=== PATIENT | female | born 1970 | race Caucasian/White ===

== ENCOUNTER 2017-06-02 12:20 | Inpatient (IN) | payer MEDICARE ==
[~2017-06-02] VITALS: Ht 157.5 cm; Wt 102.5 kg
[2017-06-02] VITALS (17 sets, daily range): BP systolic 112–171; BP diastolic 53–87; PULSE 88–95; RESP 20–30; TEMP 99.4–101.2; O2SAT 54–100
[2017-06-02] MEDS ORDERED: LISI30TA4 PO (13:07)
[2017-06-02] MEDS ORDERED: GLIP1TAB52 PO (13:07)
[2017-06-02] MEDS ORDERED: ATEN50TA PO (13:07)
[2017-06-02] MEDS ORDERED: INSU1INJ5 SQ (13:07)
[2017-06-02] MEDS ORDERED: HUMALOG SQ (13:07)
[2017-06-02] MEDS ORDERED: AMLO10TA2 PO (13:07)
[2017-06-02] MEDS ORDERED: FURO20TA PO (13:07)
--- NOTE | 2017-06-02 13:16 | RADRPT ---
EXAM DATE/TIME: 06/02/2017 12:51 [facility] COMPARISON: No previous studies available for comparison. INDICATIONS : Chest pains with shortness of breath x 1 day. Low blood pressure, back pains. MEDICAL HISTORY : None. SURGICAL HISTORY : None. ENCOUNTER: Initial ACUITY: 1 day PAIN SCORE: 9/10 LOCATION: Bilateral chest FINDINGS: A single view of the chest demonstrates bilateral perihilar vascular congestion. Questionable infiltr ate right lung base. The cardiomediastinal contours are unremarkable. Osseous structures are intact . CONCLUSION: Questionable infiltrate in the right lung base. Diffuse perihilar vascular congestion. Keyshawn Holguin MD on June 02, 2017 at 13:14 Board Certified Radiologist. This report was verified electronically.
[2017-06-02 13:22] LABS: AUTOMATED NEUTROPHIL # 13.4 TH/MM3 (1.8-7.7); BASOPHIL % 0.1 % (0.0-2.0); HEMATOCRIT 26.5 % (35.0-46.0); HEMO FLAGS DIFF FINAL; LYMPH % 12.5 % (9.0-44.0); LYMPHOCYTE # 2.1 TH/MM3 (1.0-4.8); MEAN CELL VOLUME 84.2 FL (80.0-100.0); MEAN CORPUSCULAR HEMOGLOBIN 27.2 PG (27.0-34.0); MEAN CORPUSCULAR HGB CONC 32.3 % (32.0-36.0); MONO % 8.8 % (0.0-8.0); NEUT % 78.6 % (16.0-70.0); PLATELET COUNT 236 TH/MM3 (150-450); RED BLOOD COUNT 3.14 MIL/MM3 (4.00-5.30); RED CELL DISTRIBUTION WIDTH 15.1 % (11.6-17.2); WHITE BLOOD COUNT 17.1 TH/MM3 (4.0-11.0)
[2017-06-02 13:33] LABS: APTT (PATIENT) 29.8 SEC (24.3-30.1); PROTHROMBIN TIME - PATIENT 10.9 SEC (9.8-11.6)
[2017-06-02] MEDS ORDERED: CEFEPIME INJ 2,000 MG in SODIUM CHLORIDE 0.9% INJ 100 ML IV STA (13:33)
[2017-06-02] MEDS ORDERED: AZITHROMYCIN INJ 500 MG in SODIUM CHLOR 0.9% 250 ML INJ 250 ML IV STA (13:33)
--- NOTE | 2017-06-02 13:35 | PD ---
HPI Chief Complaint: Respiratory Distress Time Seen by Provider: 12:38 Travel History International Travel<30 days: No Contact w/Intl Traveler<30days: No Traveled to known affect area: No History of Present Illness HPI 47-year-old female presents with shortness of breath, body aches, chills and general ill feeling. She states she recently came from [place] on a [address] ride. She states she feels worse when she moves around. She denies any other specific complaints. She denies wearing oxygen at home for having prior issues with that before. Her symptoms started yesterday. Initial history is limited given hypoxia. PFSH Past Medical History Cardiovascular Problems: Yes Diabetes: Yes Patient Takes Glucophage: Yes Diminished Hearing: No Hypertension: Yes Influenza Vaccination: No ?: Not Menopausal: Yes Past Surgical History Appendectomy: Yes Other Surgery: Yes (FOOT SX- [facility]. GREAT TOE SX) Social History Alcohol Use: No Tobacco Use: No Substance Use: No Allergies-Medications (Allergen,Severity, Reaction): Coded Allergies: No Known Allergies (Unverified , 06/02/17) Reported Meds & Prescriptions Reported Meds & Active Scripts Active Reported Humalog Inj (Insulin Human Lispro) 1,000 Unit/10 Ml Vial 2-12 Units SQ TIDAC Max dose at bedtime:( )units; sugars < 70,(0)units; sugars 150-199,(2)units; sugars 200-249,(4)units; sugars 250-299,(7)units; sugars 300-349,(10)units; sugars more than 349,(12)units. Levemir Flextouch Pen Inj (Insulin Detemir) 300 unit/3 ML Pen 30 Units SQ BIDAC Glipizide XL (Glipizide) 10 Mg Allan 10 Mg PO DAILY Take with breakfast or first main meal of the day Atenolol 50 Mg Tab 50 Mg PO DAILY Lisinopril 30 Mg Tab 30 Mg PO DAILY Furosemide 20 Mg Tab 20 Mg PO DAILY Amlodipine (Amlodipine Besylate) 10 Mg Tab 10 Mg PO DAILY Review of Systems ROS Limitations: Poor Historian Except as stated in HPI: all other systems reviewed are Neg Physical Exam Narrative GENERAL: Well-nourished, well-developed patient. SKIN: Warm and dry. HEAD: Normocephalic and atraumatic. EYES: No injection or drainage. ENT: No nasal drainage noted. NECK: Supple, trachea midline. no meningeal signs CARDIOVASCULAR: Regular rate and rhythm RESPIRATORY: Decreased aeration bilaterally. No accessory muscle use. GASTROINTESTINAL: Abdomen soft, non-tender, nondistended. EXTREMITIES: Trace pedal edema bilaterally NEUROLOGICAL: Awake and alert. Motor and sensory grossly within normal limits. Normal speech. Data Data Last Documented VS Vital Signs Date Time Temp Pulse Resp B/P (MAP) Pulse Ox O2 Delivery O2 Flow Rate FiO2 06/02/17 14:28 98 Non-Rebreather 15.00 06/02/17 14:25 06/02/17 13:30 90 24 06/02/17 12:32 101.2 Orders Orders Electrocardiogram (06/02/17 12:38) B-Type Natriuretic Peptide (06/02/17 12:38) Ckmb (Isoenzyme) Profile (06/02/17 12:38) Complete Blood Count With Diff (06/02/17 12:38) Comprehensive Metabolic Panel (06/02/17 12:38) Magnesium (Mg) (06/02/17 12:38) Prothrombin Time / Inr (Pt) (06/02/17 12:38) Act Partial Throm Time (Ptt) (06/02/17 12:38) Troponin I (06/02/17 12:38) Lipase (06/02/17 12:38) Chest, Single Ap (06/02/17 12:38) Ecg Monitoring (06/02/17 12:38) Bilateral Bp Monitoring (06/02/17 12:38) Iv Access Insert/Monitor (06/02/17 12:38) Oximetry (06/02/17 12:38) Oxygen Administration (06/02/17 12:38) Lactic Acid Sepsis Protocol (06/02/17 12:38) Urinalysis - C+S If Indicated (06/02/17 12:38) Blood Culture (06/02/17 12:38) Blood Glucose (06/02/17 12:38) Cefepime Inj (Maxipime Inj) (06/02/17 13:33) Azithromycin Inj (Zithromax Inj) (06/02/17 13:33) Acetaminophen (Tylenol) (06/02/17 13:45) Influenzae A/B Antigen (06/02/17 13:36) Sodium Chlorid 0.9% 500 Ml Inj (Ns 500 M (06/02/17 13:45) Sodium Chlor 0.9% 1000 Ml Inj (Ns 1000 M (06/02/17 14:15) Albuterol-Ipratropium Neb (Duoneb Neb) (06/02/17 14:45) Admit Order (Ed Use Only) (06/02/17 14:40) Labs Laboratory Tests Test 06/02/17 13:00 White Blood Count 17.1 TH/MM3 Red Blood Count 3.14 MIL/MM3 Hemoglobin 8.6 GM/DL Hematocrit 26.5 % Mean Corpuscular Volume 84.2 FL Mean Corpuscular Hemoglobin 27.2 PG Mean Corpuscular Hemoglobin Concent 32.3 % Red Cell Distribution Width 15.1 % Platelet Count 236 TH/MM3 Mean Platelet Volume 8.3 FL Neutrophils (%) (Auto) 78.6 % Lymphocytes (%) (Auto) 12.5 % Monocytes (%) (Auto) 8.8 % Eosinophils (%) (Auto) 0.0 % Basophils (%) (Auto) 0.1 % Neutrophils # (Auto) 13.4 TH/MM3 Lymphocytes # (Auto) 2.1 TH/MM3 Monocytes # (Auto) 1.5 TH/MM3 Eosinophils # (Auto) 0.0 TH/MM3 Basophils # (Auto) 0.0 TH/MM3 CBC Comment DIFF FINAL Differential Comment Prothrombin Time 10.9 SEC Prothromb Time International Ratio 1.0 RATIO Activated Partial Thromboplast Time 29.8 SEC Blood Urea Nitrogen 32 MG/DL Creatinine 3.12 MG/DL Random Glucose 284 MG/DL Total Protein 6.8 GM/DL Albumin 2.1 GM/DL Calcium Level 8.1 MG/DL Magnesium Level 2.0 MG/DL Alkaline Phosphatase 120 U/L Aspartate Amino Transf (AST/SGOT) 11 U/L Alanine Aminotransferase (ALT/SGPT) 13 U/L Total Bilirubin 0.4 MG/DL Sodium Level 138 MEQ/L Potassium Level 4.4 MEQ/L Chloride Level 105 MEQ/L Carbon Dioxide Level 24.5 MEQ/L Anion Gap 9 MEQ/L Estimat Glomerular Filtration Rate 16 ML/MIN Lactic Acid Level 1.5 mmol/L Total Creatine Kinase 88 U/L Troponin I 0.03 NG/ML B-Type Natriuretic Peptide 949 PG/ML Lipase 79 U/L [facility] Medical Decision Making Medical Screen Exam Complete: Yes Emergency Medical Condition: Yes Medical Record Reviewed: Yes (past history confirmed with nurse) Interpretation(s) CBC & BMP Diagram 06/02/17 13:00 Total Protein 6.8, Albumin 2.1 L, Calcium Level 8.1 L, Magnesium Level 2.0, Alkaline Phosphatase 120 H, Aspartate Amino Transf (AST/SGOT) 11 L, Alanine Aminotransferase (ALT/SGPT) 13, Total Bilirubin 0.4 Last 24 hours Impressions Chest X-Ray 06/02/17 1238 Signed Impressions: Service Date/Time: Friday, June 02, 2017 12:51 - CONCLUSION: Questionable infiltrate in the right lung base. Diffuse perihilar vascular congestion. Keyshawn Holguin MD Differential Diagnosis pneumonia, sepsis, influenza, renal failure, heart failure Narrative Course Will check blood work, influenza, chest x-ray and reevaluate Patient with developing fever and leukocytosis with significant hypoxemia. Will dose with cefepime and azithromycin while awaiting other testing Testing shows acute renal failure with elevated BNP. Chest x-ray shows infiltrate. Patient's lactate is normal and she has no signs of hypotension. Patient given small IV fluid bolus but aggressive IV fluid hydration will be held given elevated BNP. She will need to be monitored closely in the ICU setting given her hypoxemia. Sepsis Criteria SIRS Criteria (2 or more): Temp > 100.9 or < 96.8, WBC > 50156, < 4000 or > 10 % bands Sepsis Criteria (SIRS+source): Infect source susp/known Criteria Outcome: Meets sepsis criteria Physician Communication Physician Communication dr cameron requests a baseline abg and admit to dr amy reyes updated about ABG and agrees to monitor on nonrebreather and no methylene blue, ABG was on 10 L Diagnosis Primary Impression: Pneumonia Qualified Codes: J18.9 - Pneumonia, unspecified organism Additional Impressions: Hypoxia Renal failure Qualified Codes: N19 - Unspecified kidney failure Sepsis Qualified Codes: A41.9 - Sepsis, unspecified organism Admitting Information Admitting Physician Requests: Admit Suzanna George MD Jun 02, 2017 13:35
[2017-06-02 13:41] LABS: ANION GAP 9 MEQ/L (5-15); AST (GOT) 11 U/L (15-37); BICARBONATE 24.5 MEQ/L (21.0-32.0); BLOOD UREA NITROGEN 32 MG/DL (7-18); CHLORIDE 105 MEQ/L (98-107); GLOMERULAR FILTRATION RATE 16 ML/MIN (>89); POTASSIUM 4.4 MEQ/L (3.5-5.1); SODIUM (NA) 138 MEQ/L (136-145)
[2017-06-02 13:42] LABS: ALT (GPT) 13 U/L (10-53)
[2017-06-02] MEDS ORDERED: SODIUM CHLORID 0.9% 500 ML INJ 500 ML IV ONE (13:45)
[2017-06-02] MEDS ORDERED: ACETAMINOPHEN 325 MG TAB PO ONE (13:45)
[2017-06-02 13:46] LABS: ALKALINE PHOSPHATASE 120 U/L (45-117); TOTAL BILIRUBIN ADULT 0.4 MG/DL (0.2-1.0)
[2017-06-02 13:47] LABS: CREATINE KINASE 88 U/L (26-192)
[2017-06-02] MEDS ORDERED: SODIUM CHLOR 0.9% 1000 ML INJ 1,000 ML IV ONE (14:15)
[2017-06-02] MEDS ORDERED: RESP: ALBUTEROL 2.5 MG/IPRATROPIUM 0.5 MG NEB (SCH) NEB ONE (14:45)
[2017-06-02 15:10] LABS: BLOOD GAS BASE EXCESS -0.5 mmol/L (-2-2); BLOOD GAS CARBOXYHEMOGLOBIN 0.9 % (0-4); BLOOD GAS HCO3 24 mmol/L (22-26); BLOOD GAS METHEMOGLOBIN 3.3 % (0-2); BLOOD GAS O2 HGB SATURATION 87 % (90-100); BLOOD GAS OXYGEN CONTENT 9.8 Vol % (12.0-20.0); BLOOD GAS PCO2 44 mmHg (38-42); BLOOD GAS PO2 67 mmHG (61-120); TEMP CORR TO 98.6
[2017-06-02 15:11] LABS: CRITICAL VALUE YES; LITER FLOW 10 L/M; OXYGEN DEVICE MASK
[2017-06-02 15:12] LABS: DRAW SITE RT RADIAL; NUMBER OF ARTERIAL PUNCTURES 1; STAT YES; ULNAR PULSE PRESENT
[2017-06-02] MEDS ORDERED: LACTULOSE SYRUP 20 GM/30 ML CUP PO PRN (15:15)
[2017-06-02] MEDS ORDERED: BISACODYL 10 MG SUPP RECTAL PRN (15:15)
[2017-06-02] MEDS ORDERED: SENNOSIDES 8.6 MG TAB PO PRN (15:15)
[2017-06-02] MEDS ORDERED: ONDANSETRON HCL 4 MG/2 ML VIAL IV PUSH PRN (15:15)
[2017-06-02] MEDS ORDERED: RESP: ALBUTEROL 2.5 MG/IPRATROPIUM 0.5 MG NEB (PRN) INH (15:15)
[2017-06-02] MEDS ORDERED: SODIUM CHLORIDE 0.9% FLUSH 10 ML FLUSH IV FLUSH PRN (15:15)
[2017-06-02] MEDS ORDERED: CHLORHEXIDINE GLUCONATE 2 % 1 PACK (2 CLOTHS) TOP PRN (15:15)
[2017-06-02] MEDS ORDERED: MAGNESIUM HYDROXIDE SUSP 30 ML CUP PO PRN (15:15)
[2017-06-02] MEDS ORDERED: MISCELLANEOUS NURSING INFORMATION XX SCH (15:15)
[2017-06-02] MEDS ORDERED: DEXTROSE 50% IN WATER 50 ML VIAL(D50) IV PUSH PRN (15:30)
[2017-06-02] MEDS ORDERED: GLUCAGON 1 MG/ML VIAL OTHER PRN (15:30)
[2017-06-02] MEDS: RESP: ALBUTEROL 2.5 MG/IPRATROPIUM 0.5 MG NEB (SCH) INH ×2 (17:14→20:50)
[2017-06-02] MEDS: SODIUM CHLOR 0.9% 1000 ML INJ 1,000 ML IV SCH (18:01)
--- NOTE | 2017-06-02 18:19 | HHI.HP ---
HPI Service Critical Care Medicine Primary Care Physician No Primary Care Physician Admission Diagnosis pneumonia, hypoxia Diagnosis: (1) UTI (urinary tract infection) Diagnosis: Principal (2) Renal failure (3) Hypoxia Diagnosis: Principal (4) Sepsis Diagnosis: Principal (5) Pneumonia Diagnosis: Principal Travel History International Travel<30 Days: No Contact w/Intl Traveler <30 Da: No Traveled to Known Affected Are: No History of Present Illness History of Present Illness HPI This is a 47-year-old female that presented with shortness of breath, body aches, chills and malaise. The patient recently traveled from [place] on a 5 [address] ride. Initial O2 saturation was on in the 50s on room air. The patient was placed on nonrebreather oxygen with improvement of O2 saturation. The patient was noted to be febrile upon presentation with a temperature of 100.1. Laboratory and imaging studies were performed in the ED the patient was noted to have a leukocytosis and imaging studies revealed an infiltrate of the right lung base. 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 Attempts made to locate patient's previous home medications as patient is a poor historian. Patient notably on glipizide a sulfonylurea, concern for acquired versus genetic predisposition for methemoglobinemia.The patient received in the ED 1 L IV fluid in conjunction with cefepime and azithromycin. Critical care medicine was consulted for management History PFSH Past Medical History Cardiovascular Problems: Yes Diabetes: Yes Patient Takes Glucophage: Yes Diminished Hearing: No Hypertension: Yes Influenza Vaccination: No ?: Not Menopausal: Yes Past Surgical History Appendectomy: Yes Other Surgery: Yes (FOOT SX- [facility]. GREAT TOE SX) Social History Alcohol Use: No Tobacco Use: No Substance Use: No Allergies-Medications Allergies-Medications (Allergen,Severity, Reaction): Coded Allergies: No Known Allergies (Unverified , 06/02/17) Reported Meds & Prescriptions Reported Meds & Active Scripts Active Reported Humalog Inj (Insulin Human Lispro) 1,000 Unit/10 Ml Vial 2-12 Units SQ TIDAC Max dose at bedtime:( )units; sugars < 70,(0)units; sugars 150-199,(2)units; sugars 200-249,(4)units; sugars 250-299,(7)units; sugars 300-349,(10)units; sugars more than 349,(12)units. Levemir Flextouch Pen Inj (Insulin Detemir) 300 unit/3 ML Pen 30 Units SQ BIDAC Glipizide XL (Glipizide) 10 Mg Allan 10 Mg PO DAILY Take with breakfast or first main meal of the day Atenolol 50 Mg Tab 50 Mg PO DAILY Lisinopril 30 Mg Tab 30 Mg PO DAILY Furosemide 20 Mg Tab 20 Mg PO DAILY Amlodipine (Amlodipine Besylate) 10 Mg Tab 10 Mg PO DAILY ROS Review of Systems ROS Limitations: Poor Historian Except as stated in HPI: all other systems reviewed are Neg Physical Exam Vital Signs Vital Signs Date Time Temp Pulse Resp B/P (MAP) Pulse Ox O2 Delivery O2 Flow Rate FiO2 06/02/17 17:13 74 21 06/02/17 17:13 91 Aerosol Mask 10.00 06/02/17 16:08 100 Non-Rebreather 15.00 06/02/17 15:59 99.5 06/02/17 15:00 88 24 117/81 (93) 97 Non-Rebreather 06/02/17 14:47 100 Partial Rebreather 15.00 06/02/17 14:28 98 Non-Rebreather 15.00 06/02/17 14:25 88 Room Air 6.00 06/02/17 13:30 90 24 146/78 (100) 92 Nasal Cannula 6.00 06/02/17 13:08 91 26 92 Nasal Cannula 6.00 06/02/17 13:03 91 26 171/87 (115) 91 Nasal Cannula 6.00 06/02/17 12:46 89 Nasal Cannula 4.00 06/02/17 12:46 90 Nasal Cannula 6.00 06/02/17 12:32 101.2 91 26 167/80 (109) 76 06/02/17 12:30 100 Non-Rebreather 15.00 06/02/17 12:21 100.0 94 20 148/77 (100) 54 Room Air Physical Exam GENERAL: Obese female, currently on nonrebreather mask SKIN: Warm and dry. HEAD: Atraumatic. Normocephalic. EYES: Pupils equal and round. No scleral icterus. No injection or drainage. ENT: No nasal bleeding or discharge. Mucous membranes pink and moist. NECK: Trachea midline. No JVD. CARDIOVASCULAR: Normal rate, regular rhythm. RESPIRATORY: No accessory muscle use. Clear to auscultation. Breath sounds equal bilaterally. GASTROINTESTINAL: Abdomen soft, non-tender, nondistended. No guarding. MUSCULOSKELETAL: Extremities without clubbing, cyanosis, bilateral pedal 1+ edema. Multiple well-healed scars bilateral feet secondary to multiple toe amputations NEUROLOGICAL: Awake and alert. RASS 0. No gross focal/sensory deficits. Follows commands in all 4 extremities. Laboratory Laboratory Tests Test 06/02/17 13:00 06/02/17 15:00 White Blood Count 17.1 Red Blood Count 3.14 Hemoglobin 8.6 Hematocrit 26.5 Mean Corpuscular Volume 84.2 Mean Corpuscular Hemoglobin 27.2 Mean Corpuscular Hemoglobin Concent 32.3 Red Cell Distribution Width 15.1 Platelet Count 236 Mean Platelet Volume 8.3 Neutrophils (%) (Auto) 78.6 Lymphocytes (%) (Auto) 12.5 Monocytes (%) (Auto) 8.8 Eosinophils (%) (Auto) 0.0 Basophils (%) (Auto) 0.1 Neutrophils # (Auto) 13.4 Lymphocytes # (Auto) 2.1 Monocytes # (Auto) 1.5 Eosinophils # (Auto) 0.0 Basophils # (Auto) 0.0 CBC Comment DIFF FINAL Differential Comment Prothrombin Time 10.9 Prothromb Time International Ratio 1.0 Activated Partial Thromboplast Time 29.8 Blood Urea Nitrogen 32 Creatinine 3.12 Random Glucose 284 Total Protein 6.8 Albumin 2.1 Calcium Level 8.1 Magnesium Level 2.0 Alkaline Phosphatase 120 Aspartate Amino Transf (AST/SGOT) 11 Alanine Aminotransferase (ALT/SGPT) 13 Total Bilirubin 0.4 Sodium Level 138 Potassium Level 4.4 Chloride Level 105 Carbon Dioxide Level 24.5 Anion Gap 9 Estimat Glomerular Filtration Rate 16 Lactic Acid Level 1.5 Total Creatine Kinase 88 Troponin I 0.03 B-Type Natriuretic Peptide 949 Lipase 79 Blood Gas Puncture Site RT RADIAL Blood Gas Patient Temperature 98.6 Blood Gas HCO3 24 Blood Gas Base Excess -0.5 Blood Gas Oxygen Saturation 87 Arterial Blood pH 7.36 Arterial Blood Partial Pressure CO2 44 Arterial Blood Partial Pressure O2 67 Arterial Blood Oxygen Content 9.8 Arterial Blood Carboxyhemoglobin 0.9 Arterial Blood Methemoglobin 3.3 Blood Gas Hemoglobin 8.0 Oxygen Delivery Device MASK Blood Gas Liter Flow 10 Date/Time Source Procedure Growth Status 06/02/17 13:35 Blood Peripheral Aerobic Blood Culture Pending Received 06/02/17 13:35 Blood Peripheral Anaerobic Blood Culture Pending Received 06/02/17 14:25 Nasal Aspirate Influenza Types A,B Antigen (EMMY) - Final NEGATIVE FOR FLU A AND B ANTIGEN.... Complete Result Diagram: 06/02/17 1300 06/02/17 1300 Imaging Last Impressions Chest X-Ray 06/02/17 1238 Signed Impressions: Service Date/Time: Friday, June 02, 2017 12:51 - CONCLUSION: Questionable infiltrate in the right lung base. Diffuse perihilar vascular congestion. Keyshawn Holguin MD Septic Shock Reassessment Heart: Regular rate and rhythm Lungs: Crackles Skin: Warm Peripheral Pulses: Bounding Right Radial Bounding Left Radial Capillary Refill: Brisk, <2 seconds Caprini VTE Risk Assessment Caprini VTE Risk Assessment: Mod/High Risk (score >= 2) Caprini Risk Assessment Model Point Value = 1 Point Value = 2 Point Value = 3 Point Value = 5 Age 41-60 Minor surgery BMI > 25 kg/m2 Swollen legs Varicose veins or History of unexplained or recurrent spontaneous Oral contraceptives or hormone replacement Sepsis (< 1 month) Serious lung disease, including pneumonia (< 1 month) Abnormal pulmonary function Acute myocardial infarction Congestive heart failure (< 1 month) History of inflammatory bowel disease Medical patient at bed rest Age 61-74 Arthroscopic surgery Major open surgery (> 45 min) Laparoscopic surgery (> 45 min) Malignancy Confined to bed (> 72 hours) Immobilizing plaster cast Central venous access Age >= 75 History of VTE Family history of VTE Factor V Leiden Prothrombin [id number] Lupus anticoagulant Anticardiolipin antibodies Elevated serum homocysteine Heparin-induced thrombocytopenia Other congenital or acquired thrombophilia Stroke (< 1 month) Elective arthroplasty Hip, pelvis, or leg fracture Acute spinal cord injury (< 1 month) Prophylaxis Regimen Total Risk Factor Score Risk Level Prophylaxis Regimen 0-1 Low Early ambulation 2 Moderate Order ONE of the following: *Sequential Compression Device (SCD) *Heparin 5000 units SQ BID 3-4 Higher Order ONE of the following medications: *Heparin 5000 units SQ TID *Enoxaparin/Lovenox 40 mg SQ daily (WT < 150 kg, CrCl > 30 mL/min) *Enoxaparin/Lovenox 30 mg SQ daily (WT < 150 kg, CrCl > 10-29 mL/min) *Enoxaparin/Lovenox 30 mg SQ BID (WT < 150 kg, CrCl > 30 mL/min) AND/OR *Sequential Compression Device (SCD) 5 or more Highest Order ONE of the following medications: *Heparin 5000 units SQ TID (Preferred with Epidurals) *Enoxaparin/Lovenox 40 mg SQ daily (WT < 150 kg, CrCl > 30 mL/min) *Enoxaparin/Lovenox 30 mg SQ daily (WT < 150 kg, CrCl > 10-29 mL/min) *Enoxaparin/Lovenox 30 mg SQ BID (WT < 150 kg, CrCl > 30 mL/min) AND *Sequential Compression Device (SCD) Assessment and Plan Assessment and Plan Assessment This is a 47-year-old morbidly obese female is a poor historian now presenting with pulmonary infectious process possible pneumonia versus fluid overload, in the setting would BAN, with hypoxic respiratory insufficiency. Patient is at risk for emergency intubation admit to ICU Assessment Community-acquired pneumonia vs. 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 Will not treat at this point with methylene blue.Will monitor. 06/02 Chest [id number] right lung base Follow-up repeat ABG Consider BIPAP tonight 14/ 60% Cardiovascular: Obtain ECHO Maintain MAP greater than 65 mmHg Initial troponin 0.03 Telemetry sinus rhythm Initial BMP 949, mostly 2/2 BAN but also possibly 2/2 cardiac dysfunction Patient home meds include- Lasix 20 mg/day,( lisinopril 30 mg/day amlodipine 10 mg/day which will be held in the setting of BAN), and atenolol. Renal: No [place] Pt reports she does have problems with her kidneys per her PCP -- Strict I/Os FEN/GI: Gentle hydration normal saline 42 cc/hour Maintain NPO status for now, patient possible intubation Zofran for nausea Bowel regimen Heme/ID: Follow-up blood cultures Monitor CBC Obtain sputum culture Obtain Legionella and pneumococcal urine antigen follow-up results Endocrine: Glucose monitoring per ICU protocol, low-dose insulin regimen -- SSI Prophylaxis: GI Prophylaxis Protonix DVT Prophylaxis -- SCDs Heparin 5000 SQ BID Lines: Peripheral IVs providing adequate access at this time. Central line if indicated Dispo: This patient remains critically ill with one or more organ systems which are or may become a threat to life. I have spent in excess of 40 minutes discontinuously in the care and management of this patient. This time is exclusive of procedures, and includes, but is not limited to, evaluation of the patient, review of the medical record, discussions with family, consultants, nursing staff, or respiratory therapy, and documentation in the medical record. Code Status Full Discussed Condition With ED physician Dr. George , patient and BOAT TENDER at bedside Problem Qualifiers (1) Renal failure: Qualified Codes: N19 - Unspecified kidney failure (2) Sepsis: Qualified Codes: A41.9 - Sepsis, unspecified organism (3) Pneumonia: Qualified Codes: J18.9 - Pneumonia, unspecified organism Venecia De La Rosa MD Jun 02, 2017 18:19
[2017-06-02 18:43] LABS: BLOOD GAS BASE EXCESS -1.1 mmol/L (-2-2); BLOOD GAS CARBOXYHEMOGLOBIN 0.1 % (0-4); BLOOD GAS HCO3 24 mmol/L (22-26); BLOOD GAS METHEMOGLOBIN 3.7 % (0-2); BLOOD GAS O2 HGB SATURATION 91 % (90-100); BLOOD GAS OXYGEN CONTENT 10.3 Vol % (12.0-20.0); BLOOD GAS PCO2 43 mmHg (38-42); BLOOD GAS PO2 90 mmHg (61-120); BLOOD GAS TOTAL HGB 7.9 G/DL (12.0-16.0); TEMP CORR TO 98.6
[2017-06-02 18:45] LABS: CRITICAL VALUE YES; FIO2 100 %; LITER FLOW 15 L/M; OXYGEN DEVICE NRBR
[2017-06-02 18:46] LABS: DRAW SITE RT RADIAL; NUMBER OF ARTERIAL PUNCTURES 1; STAT NO; ULNAR PULSE PRESENT
[2017-06-02] MEDS: cefTRIAXone INJ 2,000 MG in SODIUM CHLORIDE 0.9% INJ 100 ML IV SCH (19:30)
--- NOTE | 2017-06-02 19:33 | RADRPT ---
EXAM DATE/TIME: 06/02/2017 18:37 [facility] COMPARISON: No previous studies available for comparison. INDICATIONS : Shortness of breath. MEDICAL HISTORY : Hypertension. Diabetes. SURGICAL HISTORY : Appendectomy. Bilateral foot surgery. Great toe surgery. ENCOUNTER: Initial ACUITY: 1 day PAIN SCORE: 1/10 LOCATION: Bilateral legs. TECHNIQUE: Venous ultrasound of the left and right leg was performed from the inguinal ligament to the proximal calf. Real-time, color Doppler and spectral tracing, compression and augmentation techniques were us ed. FINDINGS: RIGHT LEG: There is normal compressibility of the deep venous system from the inguinal region to the proximal ca lf. No echogenic clot is seen in the lumen of the common femoral, femoral, popliteal, and posterior tibial veins. There is a normal response of the venous system to proximal and distal augmentation an d respiration. LEFT LEG: There is normal compressibility of the deep venous system from the inguinal region to the proximal ca lf. No echogenic clot is seen in the lumen of the common femoral, femoral, popliteal, and posterior tibial veins. There is a normal response of the venous system to proximal and distal augmentation an d respiration. CONCLUSION: The study is negative for deep venous thrombosis bilateral lower extremity. Bruce Calix MD on June 02, 2017 at 19:31 Board Certified Radiologist. This report was verified electronically.
[2017-06-02] MEDS ORDERED: ACETAMINOPHEN 1000 MG/100 ML 100 ML IV PRN (20:15)
[2017-06-02] MEDS: SODIUM CHLORIDE 0.9% FLUSH 10 ML FLUSH IV FLUSH SCH (20:46)
[2017-06-02] MEDS: DOCUSATE SODIUM 50 MG/SENNA 8.6 MG TAB PO SCH (20:46)
[2017-06-02] MEDS: FAMOTIDINE 20 MG/2 ML VIAL IV PUSH SCH (20:46)
[2017-06-02] MEDS: INSULIN ASPART SUPPLEMENTAL SCALE SQ SCH (20:47)
[2017-06-03] VITALS (29 sets, daily range): BP systolic 98–176; BP diastolic 47–129; PULSE 79–94; RESP 16–38; TEMP 98.4–101.5; O2SAT 96–100
[2017-06-03 00:03] LABS: BLOOD GAS BASE EXCESS -0.1 mmol/L (-2-2); BLOOD GAS CARBOXYHEMOGLOBIN 0.2 % (0-4); BLOOD GAS HCO3 24 mmol/L (22-26); BLOOD GAS METHEMOGLOBIN 3.6 % (0-2); BLOOD GAS O2 HGB SATURATION 89 % (90-100); BLOOD GAS OXYGEN CONTENT 9.1 Vol % (12.0-20.0); BLOOD GAS PCO2 41 mmHg (38-42); BLOOD GAS PO2 79 mmHg (61-120); BLOOD GAS TOTAL HGB 7.1 G/DL (12.0-16.0); TEMP CORR TO 98.6
[2017-06-03 00:05] LABS: CRITICAL VALUE YES; DRAW SITE RT RADIAL; FIO2 60 %; NUMBER OF ARTERIAL PUNCTURES 1; STAT NO; ULNAR PULSE PRESENT
[2017-06-03 02:54] LABS: BACTERIA, URINE RARE /hpf; BLOOD, URINE SMALL (NEG); COMMENT (UR) CATH-CULTURE IND; CULTURE IF INDICATED CATH CULTURE IND; GLUCOSE,URINE 150 mg/dL (NEG); KETONE, URINE NEG (NEG); NITRITE,URINE NEG (NEG); SQUAMOUS EPITHELIAL CELL URINE 4 /hpf (0-5); URINE COLOR YELLOW (YELLW/STRAW)
[2017-06-03] MEDS: RESP: ALBUTEROL 2.5 MG/IPRATROPIUM 0.5 MG NEB (SCH) INH ×4 (03:58→20:45)
[2017-06-03] MEDS: HEPARIN SODIUM - SQ 10,000 UNITS/ML VIAL SQ SCH ×2 (04:00→16:45)
[2017-06-03] MEDS: CHLORHEXIDINE GLUCONATE 2 % 1 PACK (2 CLOTHS) TOP SCH (04:00)
--- NOTE | 2017-06-03 05:40 | RADRPT ---
EXAM DATE/TIME: 06/03/2017 04:03 [facility] COMPARISON: CHEST SINGLE AP, June 02, 2017, 12:51. INDICATIONS : Short of breath. MEDICAL HISTORY : None. SURGICAL HISTORY : None. ENCOUNTER: Initial ACUITY: 1 day PAIN SCORE: 0/10 LOCATION: Bilateral chest FINDINGS: Bilateral airspace opacities persists, mid and lower lung predominant and the side slightly worse. At least small, bilateral pleural effusions are likely. A density in pneumothorax. Heart size stable, upper limits of normal. CONCLUSION: Worsening bilateral airspace opacities and pleural effusions. Arturo Lay MD on June 03, 2017 at 5:38 Board Certified Radiologist. This report was verified electronically.
[2017-06-03 06:22] LABS: AUTOMATED NEUTROPHIL # 8.2 TH/MM3 (1.8-7.7); BASOPHIL % 0.4 % (0.0-2.0); EOSINOPHIL # 0.1 TH/MM3 (0-0.4); EOSINOPHIL % 0.5 % (0.0-4.0); LYMPH % 18.2 % (9.0-44.0); LYMPHOCYTE # 2.1 TH/MM3 (1.0-4.8); MEAN CORPUSCULAR HEMOGLOBIN 26.9 PG (27.0-34.0); MEAN CORPUSCULAR HGB CONC 32.4 % (32.0-36.0); MONO % 11.1 % (0.0-8.0); NEUT % 69.8 % (16.0-70.0); PLATELET COUNT 197 TH/MM3 (150-450); RED BLOOD COUNT 2.46 MIL/MM3 (4.00-5.30); RED CELL DISTRIBUTION WIDTH 14.8 % (11.6-17.2); WHITE BLOOD COUNT 11.7 TH/MM3 (4.0-11.0)
[2017-06-03 06:31] LABS: HEMO FLAGS DIFF FINAL
[2017-06-03 06:34] LABS: HEMATOCRIT 20.5 % (35.0-46.0)
[2017-06-03 06:50] LABS: ALT (GPT) 8 U/L (10-53); ANION GAP 8 MEQ/L (5-15); AST (GOT) 10 U/L (15-37); BICARBONATE 24.4 MEQ/L (21.0-32.0); BLOOD UREA NITROGEN 33 MG/DL (7-18); CHLORIDE 111 MEQ/L (98-107); GLOMERULAR FILTRATION RATE 15 ML/MIN (>89); POTASSIUM 3.8 MEQ/L (3.5-5.1); SODIUM (NA) 143 MEQ/L (136-145)
[2017-06-03 06:52] LABS: ALKALINE PHOSPHATASE 94 U/L (45-117); HDL CHOLESTEROL 64.8 MG/DL (40.0-60.0); LDL CHOLESTEROL 92 MG/DL (0-99); MAGNESIUM 1.7 MG/DL (1.5-2.5); TOTAL BILIRUBIN ADULT 0.2 MG/DL (0.2-1.0)
[2017-06-03] MEDS: INSULIN ASPART SUPPLEMENTAL SCALE SQ SCH ×4 (08:00→20:56)
--- NOTE | 2017-06-03 08:25 | HHI.CCPN ---
Subjective Remarks/Hospital Course This is a 47-year-old female that presented with shortness of breath, body aches, chills and malaise. The patient recently traveled from [place] on a 5 [address] ride. Initial O2 saturation was on in the 50s on room air. The patient was placed on nonrebreather oxygen with improvement of O2 saturation. The patient was noted to be febrile upon presentation with a temperature of 100.1. Laboratory and imaging studies were performed in the ED the patient was noted to have a leukocytosis and imaging studies revealed an infiltrate of the right lung base. 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 Attempts made to locate patient's previous home medications as patient is a poor historian. The patient received in the ED 1 L IV fluid in conjunction with cefepime and azithromycin. Critical care medicine was consulted for management. Subjective: 06/03: Tmax 101.5. Overnight the patient was maintained on BiPAP 14/5 and 60%, maintaining O2 saturation of 100%. ABG this a.m. showed increase in methemoglobinemia to 3.6% low PaO2. Plan for administration of methylene blue and ascorbic acid this a.m.. Patient's hemoglobin was notably decreased from 8.2 to 6.6, possibly secondary to hemolysis or bleeding, though no active signs were noted. The patient does report having a some type of cardiac history and takes nitroglycerin sublingually with her last dose yesterday morning. Extensive inquiry regarding the patient's genetic vs. acquired information regarding causes of methemoglobinemia still unknown. She states she has never been told medical history regarding G6PD or B5 reductase deficiency, but takes nitroglycerin when necessary for angina. The patient also takes sulfonamide medications-Glipizide ER. Patient was noted to have an elevation in creatinine, urine studies, renal ultrasound and CT of abdomen and pelvis are pending. The patient's BNP notably decreased, and no elevation in troponin levels. Objective Vital Signs Date Time Temp Pulse Resp B/P (MAP) Pulse Ox O2 Delivery O2 Flow Rate FiO2 06/03/17 06:00 79 06/03/17 04:20 100 60 06/03/17 04:00 98.8 16 135/62 (86) 06/02/17 20:50 Non-Rebreather 15.00 Result Diagram: 06/03/17 0555 06/03/17 0555 Other Results Microbiology Date/Time Source Procedure Growth Status 06/02/17 14:25 Nasal Aspirate Influenza Types A,B Antigen (EMMY) - Final NEGATIVE FOR FLU A AND B ANTIGEN.... Complete Laboratory Tests Test 06/02/17 15:00 06/02/17 18:35 Blood Gas Puncture Site RT RADIAL RT RADIAL Blood Gas Patient Temperature 98.6 98.6 Blood Gas HCO3 24 mmol/L (22-26) 24 mmol/L (22-26) Blood Gas Base Excess -0.5 mmol/L (-2-2) -1.1 mmol/L (-2-2) Blood Gas Oxygen Saturation 87 % (90-100) 91 % (90-100) Arterial Blood pH 7.36 (7.380-7.420) 7.36 (7.380-7.420) Arterial Blood Partial Pressure CO2 44 mmHg (38-42) 43 mmHg (38-42) Arterial Blood Partial Pressure O2 67 mmHG (61-120) 90 mmHg (61-120) Arterial Blood Oxygen Content 9.8 Vol % (12.0-20.0) 10.3 Vol % (12.0-20.0) Arterial Blood Carboxyhemoglobin 0.9 % (0-4) 0.1 % (0-4) Arterial Blood Methemoglobin 3.3 % (0-2) 3.7 % (0-2) Blood Gas Hemoglobin 8.0 G/DL (12.0-16.0) 7.9 G/DL (12.0-16.0) Oxygen Delivery Device MASK NRBR Blood Gas Liter Flow 10 L/M 15 L/M Blood Gas Inspired Oxygen 100 % Imaging Last Impressions Chest X-Ray 06/03/17 0600 Signed Impressions: Service Date/Time: Saturday, June 03, 2017 04:03 - CONCLUSION: Worsening bilateral airspace opacities and pleural effusions. Arturo Lay MD Lower Extremity Ultrasound 06/02/17 0000 Signed Impressions: Service Date/Time: Friday, June 02, 2017 18:37 - CONCLUSION: The study is negative for deep venous thrombosis bilateral lower extremity. Bruce Calix MD Last Impressions Chest X-Ray 06/02/17 1238 Signed Impressions: Service Date/Time: Zainab, June 02, 2017 12:51 - CONCLUSION: Questionable infiltrate in the right lung base. Diffuse perihilar vascular congestion. Keyshawn Holguin MD Objective Remarks BP 129/60 Pulse 98 O2 Sat 100% GENERAL: Obese female, currently on BiPAP 14/5 FIO2 .60 SKIN: Warm and dry. HEAD: Atraumatic. Normocephalic. EYES: Pupils equal and round. No scleral icterus. No injection or drainage. ENT: No nasal bleeding or discharge. Mucous membranes pink and moist. NECK: Trachea midline. No JVD. CARDIOVASCULAR: Normal rate, regular rhythm. RESPIRATORY: No accessory muscle use. Scattered rhonchi throughout lung castillo. Breath sounds equal bilaterally. GASTROINTESTINAL: Abdomen soft, non-tender, protuberant nondistended. No guarding. MUSCULOSKELETAL: Extremities without clubbing, cyanosis, bilateral pedal 1+ edema. Multiple well-healed scars bilateral feet secondary to multiple toe amputations NEUROLOGICAL: Awake and alert. RASS 0. No gross focal/sensory deficits. Follows commands in all 4 extremities. Urinary Catheter: Yes Assessment to: Continue Mandujano insert reason: Measure Accurate Output A/P Assessment and Plan Assessment This is a 47-year-old morbidly obese female is a poor historian now presenting with pulmonary infectious process possible pneumonia versus fluid overload, in the setting would BAN, with hypoxic respiratory insufficiency. Patient is at risk for emergency intubation admit to ICU Assessment Community-acquired pneumonia vs. fluid overload Leukocytosis BAN Acute systolic heart failure Acute hypoxic respiratory insufficiency History of hypertension Diabetes mellitus Obesity Hyperlipidemia Mild protein calorie malnutrition Plan Neurologic: Neurochecks per ICU protocol Avoid sedative type medications Tylenol 650 mg every 6 hours when necessary for fever and/or pain Respiratory: Maintain O2 sat greater than 92% Serial chest x-rays and ABGs as clinically indicated Bronchodilators every 6 hours scheduled for wheezing Methemoglobinemia level noted 3.3-> 3.6 increased. Denial past medical history genetic predisposition of G6PD, E5 reductase deficiency . Extrinisic use patient reportedly use of nitroglycerin 06/02, takes glipizide ER ( Sulfonylurea ) Will administer Methylene blue 100 mg IV, ascorbic acid 100 mg IV- F/U ABG 06/02 Chest [id number] right lung base BIPAP tonight 14/5 60% Cardiovascular: Obtain ECHO- F/U results Maintain MAP greater than 65 mmHg Initial troponin 0.03->0.04->0.04 Telemetry sinus rhythm Initial BMP 949 now downtrended 343, Patient home meds include- Lasix 20 mg/day,( lisinopril 30 mg/day amlodipine 10 mg/day which will be held in the setting of BAN), and atenolol. Obtain CT chest-pending Renal: Insert Mandujano-required accurate I&O's in the setting of a BAN -- Strict I/Os FEN/GI: Gentle hydration normal saline 42 cc/hour Creatinine continued elevation Obtain renal ultrasound Follow-up nephrology labs -urine sodium, creatinine, eosinophils, protein creatinine ratio May have ice chips, patient possible intubation Pt reports she does have problems with her kidneys per her PCP Obtain CT abdomen and pelvis-pending Nephrology consult Aranzafran for nausea Bowel regimen Heme/ID: Follow-up blood cultures Monitor CBC Obtain peripheral smear- R/O Merrill bodies Obtain sputum culture Obtain Legionella and pneumococcal urine antigen follow-up results Endocrine: Glucose monitoring per ICU protocol, low-dose insulin regimen -- SSI Prophylaxis: GI Prophylaxis Protonix DVT Prophylaxis -- SCDs Heparin 5000 SQ BID Lines: Peripheral IVs providing adequate access at this time. Central line if indicated Dispo: This patient remains critically ill with one or more organ systems which are or may become a threat to life. I have spent in excess of 45 minutes discontinuously in the care and management of this patient. This time is exclusive of procedures, and includes, but is not limited to, evaluation of the patient, review of the medical record, discussions with family, consultants, nursing staff, or respiratory therapy, and documentation in the medical record. Physician Venecia Weller MD Jun 03, 2017 08:25
[2017-06-03] MEDS: DOCUSATE SODIUM 50 MG/SENNA 8.6 MG TAB PO SCH ×2 (09:00→20:46)
[2017-06-03] MEDS ORDERED: ASCORBIC ACID 500 MG TAB PO ONE (09:00)
[2017-06-03] MEDS: FAMOTIDINE 20 MG/2 ML VIAL IV PUSH SCH ×2 (09:00→20:55)
[2017-06-03] MEDS: SODIUM CHLORIDE 0.9% FLUSH 10 ML FLUSH IV FLUSH SCH ×2 (09:00→20:56)
--- NOTE | 2017-06-03 09:26 | RADRPT ---
EXAM DATE/TIME: 06/03/2017 08:13 [facility] COMPARISON: No previous studies available for comparison. INDICATIONS : Increased BUN/Creatinine. MEDICAL HISTORY : Hypertension. Diabetes. SURGICAL HISTORY : Appendectomy. Bilateral foot surgery. ENCOUNTER: Initial ACUITY: 1 day PAIN SCORE: 0/10 LOCATION: Bilateral flank MEASUREMENTS: RIGHT KIDNEY: 11.3 x 4.1 x 4.4 cm LEFT KIDNEY: 9.6 x 5.1 x 5.0 cm FINDINGS: RIGHT KIDNEY: Renal cortex is normal in thickness and echotexture. No hydronephrosis, stone, or mass. LEFT KIDNEY: Renal cortex is normal in thickness and echotexture. No hydronephrosis, stone, or mass. BLADDER: Mandujano catheter.. CONCLUSION: Normal examination. Keyshawn Holguin MD on June 03, 2017 at 9:23 Board Certified Radiologist. This report was verified electronically.
--- NOTE | 2017-06-03 09:52 | RADRPT ---
EXAM DATE/TIME: 06/03/2017 09:25 [facility] COMPARISON: No previous studies available for comparison. INDICATIONS : Shortness of breath. RADIATION DOSE: 8.70 CTDIvol (mGy) ; Combined studies - Thorax/Abdomen/Pelvis MEDICAL HISTORY : Cardiovascular disease. Diabetes mellitus type 2. SURGICAL HISTORY : Appendectomy. ENCOUNTER: Initial ACUITY: 1 day PAIN SCALE: 0/10 LOCATION: chest TECHNIQUE: Volumetric scanning of the chest was performed. Using automated exposure control and adjustment of t he mA and/or kV according to patient size, radiation dose was kept as low as reasonably achievable to obtain optimal diagnostic quality images. DICOM format image data is available electronically for r eview and comparison. Follow-up recommendations for detected pulmonary nodules are based at a minimum on nodule size and pa tient risk factors according to Fleischner Society Guidelines. FINDINGS: LUNGS: There are significant areas of consolidation in the lung bases bilaterally. There is also airspace di sease in the medial right upper lobe and the left upper lobe posteriorly PLEURAE: Moderate-sized bilateral pleural effusions right greater the left. MEDIASTINUM: The heart and great vessels demonstrate no acute abnormality. The soft tissue fullness in the anteri or superior mediastinum could be reactive lymphadenopathy or a small pericardial effusion.. AXILLAE: Within normal limits. No lymphadenopathy. MUSCULOSKELETAL: Diffuse body wall edema.. MISCELLANEOUS: The visualized upper abdominal organs demonstrate no acute abnormality. CONCLUSION: Bilateral areas of consolidation and pleural effusions. Fullness of the anterior-superior mediastinal adenopathy versus fluid. Keyshawn Holguin MD on June 03, 2017 at 9:47 Board Certified Radiologist. This report was verified electronically.
--- NOTE | 2017-06-03 09:57 | RADRPT ---
EXAM DATE/TIME: 06/03/2017 09:22 [facility] COMPARISON: No previous studies available for comparison. INDICATIONS : Renal failure. ORAL CONTRAST: No oral contrast ingested. RADIATION DOSE: 8.70 CTDIvol (mGy) ; Combined studies - Thorax/Abdomen/Pelvis MEDICAL HISTORY : Cardiovascular disease. Diabetes mellitus type 2. SURGICAL HISTORY : Appendectomy. ENCOUNTER: Initial ACUITY: 1 day PAIN SCALE: 0/10 LOCATION: abdomen TECHNIQUE: Volumetric scanning of the abdomen and pelvis was performed. Using automated exposure control and ad justment of the mA and/or kV according to patient size, radiation dose was kept as low as reasonably achievable to obtain optimal diagnostic quality images. DICOM format image data is available electro nically for review and comparison. FINDINGS: LOWER LUNGS: Bilateral pleural effusions and significant consolidation at both lung bases. LIVER: Homogeneous density without lesion. There is no dilation of the biliary tree. No calcified gallston es. SPLEEN: Normal size without lesion. PANCREAS: Within normal limits. KIDNEYS: Normal in size and shape. There is no mass, stone, or hydronephrosis. ADRENAL GLANDS: Within normal limits. VASCULAR: There is no aortic aneurysm. BOWEL/MESENTERY: The stomach, small bowel, and colon demonstrate no acute abnormality. There is no free intraperitone al air or fluid. ABDOMINAL WALL: Within normal limits. Curvilinear calcification in the anterior superior abdomen possibly related to previous hernia repair. RETROPERITONEUM: There is lymphadenopathy throughout the pelvis, all small less than 1 cm in shortest axial dimension. . BLADDER: No wall thickening or mass. Mandujano catheter in place REPRODUCTIVE: Within normal limits. INGUINAL: There is no hernia. Small reactive lymph nodes. MUSCULOSKELETAL: Within normal limits for patient age. CONCLUSION: Diffuse edema throughout the body wall. Previous hernia repair which has become posterior displaced f rom the abdominal wall anteriorly. Solid organs are unremarkable. No bowel wall thickening is identif ied. Keyshawn Holguin MD on June 03, 2017 at 9:51 Board Certified Radiologist. This report was verified electronically.
--- NOTE | 2017-06-03 10:04 | EKG ---
Date Performed: 06/02/2017 Time Performed: 13:17:51 PTAGE: 47 years EKG: Sinus rhythm NORMAL ECG NO PREVIOUS TRACING DOCTOR: Keyshawn Foster Interpretating Date/Time 06/03/2017 10:04:04
[2017-06-03] MEDS: ACETAMINOPHEN 325 MG TAB PO PRN ×2 (12:40→18:18)
[2017-06-03] MEDS: AZITHROMYCIN INJ 500 MG in SODIUM CHLOR 0.9% 250 ML INJ 250 ML IV SCH (14:12)
[2017-06-03] MEDS: SODIUM CHLOR 0.9% 1000 ML INJ 1,000 ML IV SCH (16:46)
[2017-06-03] MEDS: cefTRIAXone INJ 2,000 MG in SODIUM CHLORIDE 0.9% INJ 100 ML IV SCH (18:00)
[2017-06-03] MEDS ORDERED: METHYLENE BLUE 100 MG/10 ML VIAL IV ONE ×3 (18:45→19:15)
[2017-06-03 21:30] LABS: HEMATOCRIT 31.5 % (35.0-46.0); REVIEW FLAG FINAL
[2017-06-04] VITALS (14 sets, daily range): BP systolic 146–185; BP diastolic 66–86; PULSE 88–104; RESP 18–30; TEMP 98.7–100.3; O2SAT 96–100
[2017-06-04] MEDS: CHLORHEXIDINE GLUCONATE 2 % 1 PACK (2 CLOTHS) TOP SCH (00:55)
[2017-06-04] MEDS: SODIUM CHLOR 0.9% 1000 ML INJ 1,000 ML IV SCH (03:00)
[2017-06-04] MEDS: HEPARIN SODIUM - SQ 10,000 UNITS/ML VIAL SQ SCH ×2 (03:00→16:58)
[2017-06-04] MEDS: ACETAMINOPHEN 325 MG TAB PO PRN ×2 (03:08→20:24)
[2017-06-04] MEDS: RESP: ALBUTEROL 2.5 MG/IPRATROPIUM 0.5 MG NEB (SCH) INH ×4 (04:24→21:02)
--- NOTE | 2017-06-04 05:25 | RADRPT ---
EXAM DATE/TIME: 06/04/2017 04:14 [facility] COMPARISON: CT THORAX W/O CONTRAST, June 03, 2017, 9:25. INDICATIONS : Evaluate for pneumonia MEDICAL HISTORY : Cardiovascular disease. Diabetes mellitus type 2. SURGICAL HISTORY : Appendectomy. ENCOUNTER: Subsequent ACUITY: 2 days PAIN SCORE: Non-responsive. LOCATION: Bilateral chest FINDINGS: Small to moderate bilateral pleural effusions with mid and lower lung consolidation again seen, does not appear appreciably changed. No pneumothorax. Heart size stable, within normal limits. CONCLUSION: Persistent airspace opacities and small to moderate pleural effusions on both sides. Arturo Lay MD on June 04, 2017 at 5:23 Board Certified Radiologist. This report was verified electronically.
[2017-06-04 07:21] LABS: AUTOMATED NEUTROPHIL # 7.5 TH/MM3 (1.8-7.7); BASOPHIL % 0.3 % (0.0-2.0); EOSINOPHIL # 0.1 TH/MM3 (0-0.4); EOSINOPHIL % 0.8 % (0.0-4.0); HEMATOCRIT 29.3 % (35.0-46.0); HEMO FLAGS DIFF FINAL; LYMPH % 17.3 % (9.0-44.0); LYMPHOCYTE # 1.8 TH/MM3 (1.0-4.8); MEAN CELL VOLUME 85.5 FL (80.0-100.0); MEAN CORPUSCULAR HGB CONC 32.8 % (32.0-36.0); MONO % 10.7 % (0.0-8.0); NEUT % 70.9 % (16.0-70.0); PLATELET COUNT 219 TH/MM3 (150-450); RED BLOOD COUNT 3.43 MIL/MM3 (4.00-5.30); RED CELL DISTRIBUTION WIDTH 15.2 % (11.6-17.2); WHITE BLOOD COUNT 10.6 TH/MM3 (4.0-11.0)
[2017-06-04 07:48] LABS: POTASSIUM 3.8 MEQ/L (3.5-5.1)
[2017-06-04] MEDS: INSULIN ASPART SUPPLEMENTAL SCALE SQ SCH ×4 (08:00→20:25)
[2017-06-04] MEDS: FAMOTIDINE 20 MG/2 ML VIAL IV PUSH SCH ×2 (08:09→20:27)
[2017-06-04] MEDS: DOCUSATE SODIUM 50 MG/SENNA 8.6 MG TAB PO SCH ×2 (08:10→20:23)
[2017-06-04] MEDS: SODIUM CHLORIDE 0.9% FLUSH 10 ML FLUSH IV FLUSH SCH ×2 (08:10→20:23)
--- NOTE | 2017-06-04 08:29 | PD.CONS ---
HPI Service Nephrology Consult Requested By Dr. De La Rosa Reason for Consult BAN vs CKD. Primary Care Physician No Primary Care Physician History of Present Illness This is 47 year old lady who traveled from [place] in a bus, seen in the ER, diagnosed with right sided pneumonia. Febrile on arrival. Placed on Ceftriaxone and Zithromax. Has received more than 3 liters of IVF so far. Creatinine was 3.12 on arrival, basically the same today at 3.05. Of significance, UA revealed heavy proteinuria, urine protein/creatinine ratio confirms it : 4.64 gram/gram of creatinine. Review of Systems Constitutional: COMPLAINS OF: Fatigue, Fever Respiratory: COMPLAINS OF: Cough, Wheezing, Shortness of breath Cardiovascular: DENIES: Chest pain Gastrointestinal: DENIES: Nausea, Vomiting Past Family Social History Allergies: Coded Allergies: No Known Allergies (Unverified , 06/02/17) Past Medical History Type 2 DM Hypertension Obesity Reported Medications Humalog Inj (Insulin Human Lispro) 1,000 Unit/10 Ml Vial 2-12 Units SQ TIDAC Max dose at bedtime:( )units; sugars < 70,(0)units; sugars 150-199,(2)units; sugars 200-249,(4)units; sugars 250-299,(7)units; sugars 300-349,(10)units; sugars more than 349,(12)units. Levemir Flextouch Pen Inj (Insulin Detemir) 300 unit/3 ML Pen 30 Units SQ BIDAC Glipizide XL (Glipizide) 10 Mg Allan 10 Mg PO DAILY Take with breakfast or first main meal of the day Atenolol 50 Mg Tab 50 Mg PO DAILY Lisinopril 30 Mg Tab 30 Mg PO DAILY Furosemide 20 Mg Tab 20 Mg PO DAILY Amlodipine (Amlodipine Besylate) 10 Mg Tab 10 Mg PO DAILY Family History non contributory, reviewed. Social History From [place], lives in [place]. Denies smoking or ETOH Physical Exam Vital Signs Vital Signs Date Time Temp Pulse Resp B/P (MAP) Pulse Ox O2 Delivery O2 Flow Rate FiO2 06/04/17 08:06 99 Nasal Cannula 3.00 06/04/17 06:00 97 06/04/17 04:00 88 06/04/17 04:00 100.2 88 25 154/69 (97) 100 06/04/17 02:00 91 06/04/17 00:00 90 06/04/17 00:00 98.8 90 21 149/66 (93) 99 06/03/17 22:00 94 06/03/17 20:45 98 3.00 06/03/17 20:20 99.1 87 25 155/83 100 06/03/17 20:00 90 06/03/17 20:00 99.1 90 28 155/83 (107) 100 06/03/17 18:00 93 22 137/71 (93) 96 06/03/17 17:31 93 28 106/55 (72) 97 06/03/17 17:01 99.1 93 24 126/60 97 06/03/17 17:01 92 34 126/60 (82) 98 06/03/17 16:41 99.0 91 24 146/57 98 06/03/17 16:01 99.1 87 23 140/58 (85) 99 06/03/17 15:00 90 25 117/53 (74) 96 06/03/17 14:02 91 38 176/129 (145) 99 06/03/17 13:45 91 25 140/65 (90) 99 06/03/17 13:31 90 24 149/68 (95) 99 06/03/17 13:30 98.9 91 24 149/68 100 06/03/17 13:15 99.1 90 24 176/88 100 06/03/17 13:01 91 26 176/88 (117) 100 06/03/17 12:00 98.9 89 21 168/84 (112) 100 06/03/17 11:00 84 28 154/72 (99) 99 06/03/17 10:50 100 50 06/03/17 10:00 84 27 147/68 (94) 100 06/03/17 09:00 79 19 157/76 (103) 100 06/03/17 08:23 100 50 Physical Exam GENERAL: awake, alert. SKIN: Warm and dry. HEAD: Normocephalic. EYES: No scleral icterus. No injection or drainage. NECK: Supple, trachea midline. No JVD or lymphadenopathy. CARDIOVASCULAR: Regular rate and rhythm without murmurs, gallops, or rubs. RESPIRATORY: rales at the bases. GASTROINTESTINAL: Abdomen soft, non-tender, nondistended. MUSCULOSKELETAL: No cyanosis, or edema. BACK: Nontender without obvious deformity. No CVA tenderness. Laboratory Laboratory Tests Test 06/03/17 21:15 06/03/17 23:53 06/04/17 06:47 Hemoglobin 10.3 9.6 Hematocrit 31.5 29.3 Blood Gas Puncture Site RT RADIAL Blood Gas Patient Temperature 98.6 Blood Gas HCO3 24 Blood Gas Base Excess -0.1 Blood Gas Oxygen Saturation 89 Arterial Blood pH 7.39 Arterial Blood Partial Pressure CO2 41 Arterial Blood Partial Pressure O2 79 Arterial Blood Oxygen Content 9.1 Arterial Blood Carboxyhemoglobin 0.2 Arterial Blood Methemoglobin 3.6 Blood Gas Hemoglobin 7.1 Oxygen Delivery Device BIPAP 14/5/60% Blood Gas Inspired Oxygen 60 White Blood Count 10.6 Red Blood Count 3.43 Mean Corpuscular Volume 85.5 Mean Corpuscular Hemoglobin 28.0 Mean Corpuscular Hemoglobin Concent 32.8 Red Cell Distribution Width 15.2 Platelet Count 219 Mean Platelet Volume 8.5 Neutrophils (%) (Auto) 70.9 Lymphocytes (%) (Auto) 17.3 Monocytes (%) (Auto) 10.7 Eosinophils (%) (Auto) 0.8 Basophils (%) (Auto) 0.3 Neutrophils # (Auto) 7.5 Lymphocytes # (Auto) 1.8 Monocytes # (Auto) 1.1 Eosinophils # (Auto) 0.1 Basophils # (Auto) 0.0 CBC Comment DIFF FINAL Differential Comment Blood Urea Nitrogen 33 Creatinine 3.05 Random Glucose 149 Calcium Level 8.1 Phosphorus Level 4.4 Magnesium Level 2.0 Sodium Level 142 Potassium Level 3.8 Chloride Level 110 Carbon Dioxide Level 21.0 Anion Gap 11 Estimat Glomerular Filtration Rate 17 Date/Time Source Procedure Growth Status 06/02/17 13:35 Blood Peripheral Aerobic Blood Culture - Preliminary NO GROWTH IN 1 DAY Resulted 06/02/17 13:35 Blood Peripheral Anaerobic Blood Culture - Preliminary NO GROWTH IN 1 DAY Resulted 06/02/17 14:25 Nasal Aspirate Influenza Types A,B Antigen (EMMY) - Final NEGATIVE FOR FLU A AND B ANTIGEN.... Complete 06/03/17 01:40 Urine Catheterized Urine Urine Culture Pending Received Result Diagram: 06/04/17 0647 06/04/17 0647 Assessment and Plan Problem List: (1) BAN (acute kidney injury) ICD Codes: N17.9 - Acute kidney failure, unspecified Plan: Renal function was abnormal on arrival, likely has CKD, as suggested by proteinuria. Renal US is unremarkable. It is possible that she has developed BAN due to pneumonia and sepsis. Continue supportive care. Avoid nephrotoxic agents. Maintain MAP above 65. (2) Pneumonia ICD Codes: J18.9 - Pneumonia, unspecified organism Status: Acute Plan: On Ceftriaxone and Zithromax. (3) Type 2 diabetes mellitus with diabetic chronic kidney disease ICD Codes: E11.22 - Type 2 diabetes mellitus with diabetic chronic kidney disease Plan: insulin coverage. Avoid metformin. She has heavy proteinuria. (4) Proteinuria ICD Codes: R80.9 - Proteinuria, unspecified Plan: See above. Order serologies to consider other etiologies: KEVIN, ANCA, HIV and hepatitis profile, as well as complements. Assessment and Plan Thanks for the consult. Problem Qualifiers (1) Pneumonia: Qualified Codes: J18.9 - Pneumonia, unspecified organism Jean Carlos Dalton MD Jun 04, 2017 08:29
[2017-06-04] MEDS ORDERED: ACETAMINOPHEN 1000 MG/100 ML 100 ML IV ONE (12:15)
[2017-06-04] MEDS: hydrALAZINE HCL 20 MG/ML VIAL IV PUSH PRN (12:34)
[2017-06-04] MEDS: AZITHROMYCIN INJ 500 MG in SODIUM CHLOR 0.9% 250 ML INJ 250 ML IV SCH (13:08)
--- NOTE | 2017-06-04 16:12 | HHI.CCPN ---
Subjective Remarks/Hospital Course This is a 47-year-old female that presented with shortness of breath, body aches, chills and malaise. The patient recently traveled from [place] on a [address] ride[address] Initial O2 saturation was on in the 50s on room air. The patient was placed on nonrebreather oxygen with improvement of O2 saturation. The patient was noted to be febrile upon presentation with a temperature of 100.1. Laboratory and imaging studies were performed in the ED the patient was noted to have a leukocytosis and imaging studies revealed an infiltrate of the right lung base. 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 Attempts made to locate patient's previous home medications as patient is a poor historian. The patient received in the ED 1 L IV fluid in conjunction with cefepime and azithromycin. Critical care medicine was consulted for management. Subjective: 06/03: Tmax 101.5. Overnight the patient was maintained on BiPAP 14/5 and 60%, maintaining O2 saturation of 100%. ABG this a.m. showed increase in methemoglobinemia to 3.6% low PaO2. Plan for administration of methylene blue and ascorbic acid this a.m.. Patient's hemoglobin was notably decreased from 8.2 to 6.6, possibly secondary to hemolysis or bleeding, though no active signs were noted. The patient does report having a some type of cardiac history and takes nitroglycerin sublingually with her last dose yesterday morning. Extensive inquiry regarding the patient's genetic vs. acquired information regarding causes of methemoglobinemia still unknown. She states she has never been told medical history regarding G6PD or B5 reductase deficiency, but takes nitroglycerin when necessary for angina. The patient also takes sulfonamide medications-Glipizide ER. Patient was noted to have an elevation in creatinine, urine studies, renal ultrasound and CT of abdomen and pelvis are pending. The patient's BNP notably decreased, and no elevation in troponin levels. 06/04: Afebrile .She received ascorbic acid and methylene blue yesterday. Patient's O2 requirements decreased, currently 3 L nasal cannula. Urine studies revealed high protein creatinine ratio suggestive of CKD, management per nephrology, studies pending. Patient now tolerating a diabetic diet, IV fluids discontinued. Levemir restarted. Patient now up out of bed in chair. Objective Vital Signs Date Time Temp Pulse Resp B/P (MAP) Pulse Ox O2 Delivery O2 Flow Rate FiO2 06/04/17 14:00 99 06/04/17 13:05 33 06/04/17 12:00 100.3 185/86 (119) 98 06/04/17 08:06 Nasal Cannula 3.00 06/03/17 10:50 50 Intake and Output 06/04/17 06/04/17 06/05/17 08:00 16:00 00:00 Intake Total 1172 ml 100 ml Output Total 550 ml Balance 622 ml 100 ml Result Diagram: 06/04/17 0647 06/04/17 0647 Other Results Microbiology Date/Time Source Procedure Growth Status 06/02/17 14:25 Nasal Aspirate Influenza Types A,B Antigen (EMMY) - Final NEGATIVE FOR FLU A AND B ANTIGEN.... Complete 06/03/17 01:40 Urine Clean Catch Legionella Antigen - Final PRESUMPTIVE NEGATIVE FOR LEGIONELLA P... Complete 06/03/17 01:40 Urine Clean Catch Streptococcus pneumoniae Antigen (M - Final PRESUMPTIVE NEGATIVE FOR STREPTOCOCCU... Complete Laboratory Tests Test 06/03/17 23:53 Blood Gas Puncture Site RT RADIAL Blood Gas Patient Temperature 98.6 Blood Gas HCO3 24 mmol/L (22-26) Blood Gas Base Excess -0.1 mmol/L (-2-2) Blood Gas Oxygen Saturation 89 % (90-100) Arterial Blood pH 7.39 (7.380-7.420) Arterial Blood Partial Pressure CO2 41 mmHg (38-42) Arterial Blood Partial Pressure O2 79 mmHg (61-120) Arterial Blood Oxygen Content 9.1 Vol % (12.0-20.0) Arterial Blood Carboxyhemoglobin 0.2 % (0-4) Arterial Blood Methemoglobin 3.6 % (0-2) Blood Gas Hemoglobin 7.1 G/DL (12.0-16.0) Oxygen Delivery Device BIPAP 14/5/60% Blood Gas Inspired Oxygen 60 % Imaging Last Impressions Chest X-Ray 06/04/17 0600 Signed Impressions: Service Date/Time: May 04:14 - CONCLUSION: Persistent airspace opacities and small to moderate pleural effusions on both sides. Arturo Lay MD Renal Ultrasound 06/03/17 0000 Signed Impressions: Service Date/Time: Saturday, June 03, 2017 08:13 - CONCLUSION: Normal examination. Keyshawn Holguin MD Chest CT 06/03/17 0000 Signed Impressions: Service Date/Time: Saturday, June 03, 2017 09:25 - CONCLUSION: Bilateral areas of consolidation and pleural effusions. Fullness of the anterior- superior mediastinal adenopathy versus fluid. Keyshawn Holguin MD Abdomen/Pelvis CT 06/03/17 0000 Signed Impressions: Service Date/Time: Saturday, June 03, 2017 09:22 - CONCLUSION: Diffuse edema throughout the body wall. Previous hernia repair which has become posterior displaced from the abdominal wall anteriorly. Solid organs are unremarkable. No bowel wall thickening is identified. Keyshawn Holguin MD Lower Extremity Ultrasound 06/02/17 0000 Signed Impressions: Service Date/Time: Friday, June 02, 2017 18:37 - CONCLUSION: The study is negative for deep venous thrombosis bilateral lower extremity. Bruce Calix MD Last Impressions Chest X-Ray 06/03/17 0600 Signed Impressions: Service Date/Time: Saturday, June 03, 2017 04:03 - CONCLUSION: Worsening bilateral airspace opacities and pleural effusions. Arturo Lay MD Lower Extremity Ultrasound 06/02/17 0000 Signed Impressions: Service Date/Time: Friday, June 02, 2017 18:37 - CONCLUSION: The study is negative for deep venous thrombosis bilateral lower extremity. Bruce Calix MD Last Impressions Chest X-Ray 06/02/17 1238 Signed Impressions: Service Date/Time: Friday, June 02, 2017 12:51 - CONCLUSION: Questionable infiltrate in the right lung base. Diffuse perihilar vascular congestion. Keyshawn Holguin MD Objective Remarks GENERAL: Obese female, no acute distress SKIN: Warm and dry. HEAD: Atraumatic. Normocephalic. EYES: Pupils equal and round. No scleral icterus. No injection or drainage. ENT: No nasal bleeding or discharge. Mucous membranes pink and moist. NECK: Trachea midline. No JVD. CARDIOVASCULAR: Normal rate, regular rhythm. RESPIRATORY: No accessory muscle use. Clear to auscultation. Breath sounds equal bilaterally. GASTROINTESTINAL: Abdomen soft, non-tender, protuberant nondistended. No guarding. Normoactive bowel sounds MUSCULOSKELETAL: Extremities without clubbing, cyanosis, bilateral pedal 1+ edema. Multiple well-healed scars bilateral feet secondary to multiple toe amputations NEUROLOGICAL: Awake and alert. RASS 0. No gross focal/sensory deficits. Follows commands in all 4 extremities. A/P Assessment and Plan Assessment Community-acquired pneumonia vs. fluid overload Leukocytosis BAN in the setting of chronic kidney disease Acute systolic heart failure Acute hypoxic respiratory insufficiency History of hypertension Diabetes mellitus Obesity Hyperlipidemia Mild protein calorie malnutrition Iron deficiency anemia Plan Neurologic: Neurochecks per ICU protocol Avoid sedative type medications Tylenol 650 mg every 6 hours when necessary for fever and/or pain Respiratory: Maintain O2 sat greater than 92% FiO2 as tolerated Serial chest x-rays and ABGs as clinically indicated Bronchodilators every 6 hours scheduled for wheezing Methemoglobinemia level noted 3.3-> 3.6 increased. Denial past medical history genetic predisposition of G6PD, E5 reductase deficiency . Extrinisic use patient reportedly use of nitroglycerin 06/02, takes glipizide ER ( Sulfonylurea ) 06/03 Methylene blue 100 mg IV, ascorbic acid 100 mg IV- F/U ABG 06/02 Chest [id number] right lung base Pulmonology consult Cardiovascular: 06/04 ECHO performed- F/U results Maintain MAP greater than 65 mmHg Troponin 0.03->0.04->0.04 Telemetry sinus rhythm Initial BMP 949 now downtrended 343, Patient home meds include- Lasix 20 mg/day,( lisinopril 30 mg/day amlodipine 10 mg/day which will be held in the setting of BAN), and atenolol. Renal: Discontinue Mandujano -- Strict I/Os FEN/GI: DC IV fluid-patient tolerating 2200-calorie ADA diet Creatinine ?Protein Ratio elevated 06/02 Renal ultrasound-no hydronephrosis Nephrology following Zofran for nausea Bowel regimen Heme/ID: Blood cultures-NGTD Monitor CBC 06/03 peripheral smear- hypochromic anemia Obtain iron studies Obtain sputum culture Legionella and pneumococcal urine antigen-negative On Rocephin and azithromycin Endocrine: Glucose monitoring per ICU protocol, low-dose insulin regimen -- SSI Prophylaxis: GI Prophylaxis Protonix DVT Prophylaxis -- SCDs Heparin 5000 SQ BID Lines: Peripheral IVs providing adequate access at this time. Central line if indicated Dispo: Level 2 Plan transfer to [facility], plan transfer to floor Physician Venecia Weller MD Jun 04, 2017 16:12
[2017-06-04] MEDS: cefTRIAXone INJ 2,000 MG in SODIUM CHLORIDE 0.9% INJ 100 ML IV SCH (17:31)
--- NOTE | 2017-06-04 18:11 | ECHRPT ---
Indication: sob CONCLUSIONS The left ventricular systolic function is low normal with an estimated ejection fraction in the rang e of 50- 55%. Normal left ventricular size. Mild concentric left ventricular hypertrophy. Mild mitral valve regurgitation. No aortic valve regurgitation. No aortic valve stenosis. There is mild tricuspid valve regurgitation. The pulmonary valve is not well visualized. BP: / HR: Rhythm: MEASUREMENTS (Male / Female) Normal Values Technical Quality:Very technically difficult study 2D ECHO LV Diastolic Diameter PLAX 4.1 cm 4.2 - 5.9 / 3.9 - 5.3 cm LV Systolic Diameter PLAX 3.2 cm IVS Diastolic Thickness 1.4 cm 0.6 - 1.0 / 0.6 - 0.9 cm LVPW Diastolic Thickness 1.2 cm 0.6 - 1.0 / 0.6 - 0.9 cm LV Relative Wall Thickness 0.6 RV Internal Dim ED PLAX 2.5 cm M-MODE Aortic Root Diameter MM 2.9 cm LA Systolic Diameter MM 3.3 cm LA Ao Ratio MM 1.1 AV Cusp Separation MM 2.3 cm DOPPLER AV Peak Velocity 207.0 cm/s AV Peak Gradient 17.1 mmHg AV Mean Gradient 9.0 mmHg AV Velocity Time Integral 37.2 cm LVOT Peak Velocity 66.9 cm/s LVOT Peak Gradient 1.8 mmHg LVOT Velocity Time Integral 10.3 cm FINDINGS LEFT VENTRICLE The left ventricular systolic function is low normal with an estimated ejection fraction in the rang e of 50- 55%. Normal left ventricular size. Mild concentric left ventricular hypertrophy. RIGHT VENTRICLE Normal right ventricular size and systolic function. LEFT ATRIUM The left atrial size is normal. RIGHT ATRIUM The right atrial size is normal. ATRIAL SEPTUM Normal atrial septal thickness without atrial level shunting by limited color doppler interrogation. AORTA The aortic root and proximal ascending aorta are normal in size on limited imaging. MITRAL VALVE Mild mitral valve regurgitation. Structurally normal mitral valve. AORTIC VALVE Trileaflet aortic valve. No aortic valve regurgitation. No aortic valve stenosis. TRICUSPID VALVE There is mild tricuspid valve regurgitation. Structurally normal tricuspid valve. PULMONARY VALVE The pulmonary valve is not well visualized. VESSELS The inferior vena cava is normal in size. PERICARDIUM No pericardial effusion. Lan Alvarado MD (Electronically Signed) Final Date:04 June 2017 18:10
[2017-06-04 18:18] LABS: BLOOD GAS CARBOXYHEMOGLOBIN 0.9 % (0-4); BLOOD GAS HCO3 21 mmol/L (22-26); BLOOD GAS METHEMOGLOBIN 2.7 % (0-2); BLOOD GAS O2 HGB SATURATION 81 % (90-100); BLOOD GAS OXYGEN CONTENT 10.6 Vol % (12.0-20.0); BLOOD GAS PCO2 38 mmHg (38-42); BLOOD GAS PO2 52 mmHg (61-120); BLOOD GAS TOTAL HGB 9.2 G/DL (12.0-16.0); TEMP CORR TO 98.6
[2017-06-04 18:19] LABS: CRITICAL VALUE YES; DRAW SITE RT RADIAL; LITER FLOW 2 L/M; NUMBER OF ARTERIAL PUNCTURES 1; OXYGEN DEVICE NASAL CANNULA; STAT NO; ULNAR PULSE PRESENT
[2017-06-04 19:14] LABS: FERRITIN 296 NG/ML (8-252); TRANSFERRIN IRON PROFILE 139 MG/DL (200-360)
[2017-06-04] MEDS: INSULIN DETEMIR 100 UNITS/ML VIAL SQ SCH (20:25)
[2017-06-04] MEDS: guaiFENesin SOLUTION 200 MG/10 ML CUP PO PRN (22:21)
[2017-06-05] VITALS (13 sets, daily range): BP systolic 142–193; BP diastolic 71–87; PULSE 92–106; RESP 17–30; TEMP 98.3–99.9; O2SAT 93–100
[2017-06-05] MEDS: hydrALAZINE HCL 20 MG/ML VIAL IV PUSH PRN ×2 (02:32→08:49)
[2017-06-05] MEDS: RESP: ALBUTEROL 2.5 MG/IPRATROPIUM 0.5 MG NEB (SCH) INH ×4 (03:12→22:00)
[2017-06-05] MEDS: CHLORHEXIDINE GLUCONATE 2 % 1 PACK (2 CLOTHS) TOP SCH (04:00)
[2017-06-05] MEDS: HEPARIN SODIUM - SQ 10,000 UNITS/ML VIAL SQ SCH ×2 (04:45→16:00)
--- NOTE | 2017-06-05 07:19 | HHI.CCPN ---
Subjective Remarks/Hospital Course This is a 47-year-old female that presented with shortness of breath, body aches, chills and malaise. The patient recently traveled from [place] on a [address] ride. Initial O2 saturation was on in the 50s on room air. The patient was placed on nonrebreather oxygen with improvement of O2 saturation. The patient was noted to be febrile upon presentation with a temperature of 100.1. Laboratory and imaging studies were performed in the ED the patient was noted to have a leukocytosis and imaging studies revealed an infiltrate of the right lung base. 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 Attempts made to locate patient's previous home medications as patient is a poor historian. The patient received in the ED 1 L IV fluid in conjunction with cefepime and azithromycin. Critical care medicine was consulted for management. Subjective: 06/03: Tmax 101.5. Overnight the patient was maintained on BiPAP 14/5 and 60%, maintaining O2 saturation of 100%. ABG this a.m. showed increase in methemoglobinemia to 3.6% low PaO2. Plan for administration of methylene blue and ascorbic acid this a.m.. Patient's hemoglobin was notably decreased from 8.2 to 6.6, possibly secondary to hemolysis or bleeding, though no active signs were noted. The patient does report having a some type of cardiac history and takes nitroglycerin sublingually with her last dose yesterday morning. Extensive inquiry regarding the patient's genetic vs. acquired information regarding causes of methemoglobinemia still unknown. She states she has never been told medical history regarding G6PD or B5 reductase deficiency, but takes nitroglycerin when necessary for angina. The patient also takes sulfonamide medications-Glipizide ER. Patient was noted to have an elevation in creatinine, urine studies, renal ultrasound and CT of abdomen and pelvis are pending. The patient's BNP notably decreased, and no elevation in troponin levels. 06/04: Afebrile .She received ascorbic acid and methylene blue yesterday. Patient's O2 requirements decreased, currently 3 L nasal cannula. Urine studies revealed high protein creatinine ratio suggestive of CKD, management per nephrology, studies pending. Patient now tolerating a diabetic diet, IV fluids discontinued. Levemir restarted. Patient now up out of bed in chair. 06/05: Afebrile .No acute events overnight. The patient was out of bed for several hours yesterday, oxygen requirements have decreased to 2 L nasal cannula. Patient tolerating diet. Objective Vital Signs Date Time Temp Pulse Resp B/P (MAP) Pulse Ox O2 Delivery O2 Flow Rate FiO2 06/05/17 06:00 102 06/05/17 04:00 99.1 17 152/71 (98) 100 06/05/17 03:12 35 06/04/17 21:02 Nasal Cannula 3.00 Intake and Output 06/05/17 06/05/17 06/06/17 08:00 16:00 00:00 Intake Total 240 ml Output Total 450 ml Balance -210 ml Result Diagram: 06/04/17 0647 06/04/17 0647 Other Results Microbiology Date/Time Source Procedure Growth Status 06/02/17 14:25 Nasal Aspirate Influenza Types A,B Antigen (EMMY) - Final NEGATIVE FOR FLU A AND B ANTIGEN.... Complete 06/03/17 01:40 Urine Clean Catch Legionella Antigen - Final PRESUMPTIVE NEGATIVE FOR LEGIONELLA P... Complete 06/03/17 01:40 Urine Clean Catch Streptococcus pneumoniae Antigen (M - Final PRESUMPTIVE NEGATIVE FOR STREPTOCOCCU... Complete Laboratory Tests Test 06/04/17 18:08 Blood Gas Puncture Site RT RADIAL Blood Gas Patient Temperature 98.6 Blood Gas HCO3 21 mmol/L (22-26) Blood Gas Base Excess -3.0 mmol/L (-2-2) Blood Gas Oxygen Saturation 81 % (90-100) Arterial Blood pH 7.37 (7.380-7.420) Arterial Blood Partial Pressure CO2 38 mmHg (38-42) Arterial Blood Partial Pressure O2 52 mmHg (61-120) Arterial Blood Oxygen Content 10.6 Vol % (12.0-20.0) Arterial Blood Carboxyhemoglobin 0.9 % (0-4) Arterial Blood Methemoglobin 2.7 % (0-2) Blood Gas Hemoglobin 9.2 G/DL (12.0-16.0) Oxygen Delivery Device NASAL CANNULA Blood Gas Liter Flow 2 L/M Imaging Last Impressions Chest X-Ray 06/04/17 0600 Signed Impressions: Service Date/Time: May 04:14 - CONCLUSION: Persistent airspace opacities and small to moderate pleural effusions on both sides. Arturo Lay MD Renal Ultrasound 06/03/17 0000 Signed Impressions: Service Date/Time: Saturday, June 03, 2017 08:13 - CONCLUSION: Normal examination. Keyshawn Holguin MD Chest CT 06/03/17 0000 Signed Impressions: Service Date/Time: Saturday, June 03, 2017 09:25 - CONCLUSION: Bilateral areas of consolidation and pleural effusions. Fullness of the anterior- superior mediastinal adenopathy versus fluid. Keyshawn Holguin MD Abdomen/Pelvis CT 06/03/17 0000 Signed Impressions: Service Date/Time: Saturday, June 03, 2017 09:22 - CONCLUSION: Diffuse edema throughout the body wall. Previous hernia repair which has become posterior displaced from the abdominal wall anteriorly. Solid organs are unremarkable. No bowel wall thickening is identified. Keyshawn Holguin MD Lower Extremity Ultrasound 06/02/17 0000 Signed Impressions: Service Date/Time: Friday, June 02, 2017 18:37 - CONCLUSION: The study is negative for deep venous thrombosis bilateral lower extremity. Bruce Calix MD Last Impressions Chest X-Ray 06/03/17 0600 Signed Impressions: Service Date/Time: Saturday, June 03, 2017 04:03 - CONCLUSION: Worsening bilateral airspace opacities and pleural effusions. Arturo Lay MD Lower Extremity Ultrasound 06/02/17 0000 Signed Impressions: Service Date/Time: Friday, June 02, 2017 18:37 - CONCLUSION: The study is negative for deep venous thrombosis bilateral lower extremity. Bruce Calix MD Last Impressions Chest X-Ray 06/02/17 1238 Signed Impressions: Service Date/Time: Friday, June 02, 2017 12:51 - CONCLUSION: Questionable infiltrate in the right lung base. Diffuse perihilar vascular congestion. Keyshawn Holguin MD Objective Remarks GENERAL: Obese female, lying in bed in no acute distress SKIN: Warm and dry. HEAD: Atraumatic. Normocephalic. EYES: Pupils equal and round. No scleral icterus. No injection or drainage. ENT: No nasal bleeding or discharge. Mucous membranes pink and moist. NECK: Trachea midline. No JVD. CARDIOVASCULAR: Normal rate, regular rhythm. RESPIRATORY: No accessory muscle use. Clear to auscultation. Breath sounds equal bilaterally. Productive cough GASTROINTESTINAL: Abdomen soft, non-tender, protuberant nondistended. No guarding. Normoactive bowel sounds MUSCULOSKELETAL: Extremities without clubbing, cyanosis, bilateral pedal 1+ edema. Multiple well-healed scars bilateral feet secondary to multiple toe amputations NEUROLOGICAL: Awake and alert. RASS 0. No gross focal/sensory deficits. Follows commands in all 4 extremities. A/P Assessment and Plan Assessment Community-acquired pneumonia vs. fluid overload Leukocytosis BAN in the setting of chronic kidney disease Acute systolic heart failure Acute hypoxic respiratory insufficiency History of hypertension Diabetes mellitus Obesity Hyperlipidemia Mild protein calorie malnutrition Iron deficiency anemia Plan Neurologic: Neurochecks per ICU protocol Avoid sedative type medications Tylenol 650 mg every 6 hours when necessary for fever and/or pain Respiratory: Maintain O2 sat greater than 92% FiO2 as tolerated Serial chest x-rays and ABGs as clinically indicated Bronchodilators every 6 hours scheduled for wheezing Methemoglobinemia level noted 3.3-> 3.6 increased. Denial past medical history genetic predisposition of G6PD, E5 reductase deficiency . Extrinisic use patient reportedly use of nitroglycerin 06/02, takes glipizide ER ( Sulfonylurea ) 06/03 Methylene blue 100 mg IV, ascorbic acid 100 mg IV- F/U ABG 06/02 Chest s-[id number]-[id number] right lung base Pulmonology consult Cardiovascular: 06/04 ECHO performed- F/U results Maintain MAP greater than 65 mmHg Troponin 0.03->0.04->0.04 Telemetry sinus rhythm Initial BMP 949 now downtrended 343, Patient home meds include- Lasix 20 mg/day,( lisinopril 30 mg/day amlodipine 10 mg/day which will be held in the setting of BAN), and atenolol. Renal: Discontinue Mandujano -- Strict I/Os FEN/GI: DC IV fluid-patient tolerating 2200-calorie ADA diet Creatinine ?Protein Ratio elevated 06/02 Renal ultrasound-no hydronephrosis Nephrology following Zofran for nausea Bowel regimen Heme/ID: Blood cultures-NGTD Monitor CBC 06/03 peripheral smear- hypochromic anemia Obtain iron studies Obtain sputum culture Legionella and pneumococcal urine antigen-negative On Rocephin and azithromycin Endocrine: Glucose monitoring per ICU protocol, low-dose insulin regimen 06/04 Levimir restarted -- SSI Prophylaxis: GI Prophylaxis Protonix DVT Prophylaxis -- SCDs Heparin 5000 SQ BID Lines: Peripheral IVs providing adequate access at this time. Central line if indicated Dispo: Level 2 Plan transfer to [facility], plan transfer to [facility] floor today Physician Venecia Weller MD Jun 05, 2017 07:19
[2017-06-05] MEDS: INSULIN ASPART SUPPLEMENTAL SCALE SQ SCH ×4 (08:00→20:59)
[2017-06-05] MEDS: FAMOTIDINE 20 MG/2 ML VIAL IV PUSH SCH ×2 (08:01→20:53)
[2017-06-05] MEDS: SODIUM CHLORIDE 0.9% FLUSH 10 ML FLUSH IV FLUSH SCH ×2 (08:02→20:59)
[2017-06-05] MEDS: INSULIN DETEMIR 100 UNITS/ML VIAL SQ SCH ×2 (08:02→20:46)
[2017-06-05] MEDS: ATENOLOL 50 MG TAB PO SCH (08:02)
[2017-06-05] MEDS: DOCUSATE SODIUM 50 MG/SENNA 8.6 MG TAB PO SCH ×2 (08:02→20:46)
[2017-06-05] MEDS: guaiFENesin SOLUTION 200 MG/10 ML CUP PO PRN ×2 (08:48→20:43)
[2017-06-05 10:24] LABS: HEPATITIS B SURFACE ANTIBODY 0.4 mIU/mL
[2017-06-05 13:56] LABS: BICARBONATE 21.4 MEQ/L (21.0-32.0); POTASSIUM 4.1 MEQ/L (3.5-5.1)
[2017-06-05] MEDS: AZITHROMYCIN INJ 500 MG in SODIUM CHLOR 0.9% 250 ML INJ 250 ML IV SCH (14:00)
[2017-06-05] MEDS: ACETAMINOPHEN 325 MG TAB PO PRN ×2 (15:04→23:14)
[2017-06-05] MEDS: cefTRIAXone INJ 2,000 MG in SODIUM CHLORIDE 0.9% INJ 100 ML IV SCH (17:44)
--- NOTE | 2017-06-05 17:49 | HHI.NPPN ---
Subjective Interval History Transferred out of ICU. Renal function is stable. Patient has very low albumin. Nephrotic range proteinuria. HIV screening is negative. Hepatitis B surface antigen and Hepatitis C antibody negative. Review of Systems General Constitutional: Fatigue Respiratory Lungs: Cough Objective Data Data Vital Signs Date Time Temp Pulse Resp B/P (MAP) Pulse Ox O2 Delivery O2 Flow Rate FiO2 06/05/17 16:59 94 Nasal Cannula 2.00 06/05/17 12:01 98.7 100 22 146/76 (99) 94 06/05/17 10:35 98.6 103 22 148/78 (101) 93 06/05/17 09:35 97 Nasal Cannula 2.00 06/05/17 08:00 101 06/05/17 08:00 99.9 101 30 193/87 (122) 98 06/05/17 06:00 102 06/05/17 04:00 106 06/05/17 04:00 99.1 98 17 152/71 (98) 100 06/05/17 03:12 100 35 06/05/17 02:00 97 06/05/17 00:00 98 06/05/17 00:00 99.1 98 17 152/71 (98) 100 06/04/17 22:00 103 06/04/17 21:24 18 06/04/17 21:02 98 Nasal Cannula 3.00 06/04/17 20:00 100.0 101 18 170/77 (108) 100 06/04/17 20:00 101 06/04/17 18:00 103 -: 06/04/17 0647 06/05/17 1226 Physical Exam General Appearance: Well Developed, Well Nourished Eyes Eye Exam: Pupils Equal Neck Neck Exam: Neck Supple Pulmonary Resp Exam: Clear Bilaterally, Breath Sounds Equal Cardiology CV Exam: Regular, Normal Sinus Rhythm Gastrointestinal/Abdomen GI Exam: Soft, Non-Tender, Bowel Sounds Present Musculoskeletal MS Exam: Joints Intact Integumentary Skin Exam: Intact Extremeties Extremities Exam: No Edema Assessment/Plan Problem List: (1) BAN (acute kidney injury) ICD Codes: N17.9 - Acute kidney failure, unspecified Plan: Renal function was abnormal on arrival, likely has CKD, as suggested by proteinuria. Renal US is unremarkable. Renal function is stable. Most likely has underlying diabetic nephropathy with presence of heavy proteinuria. Serologies negative so far. Avoid nephrotoxic agents. Maintain MAP above 65. (2) Pneumonia ICD Codes: J18.9 - Pneumonia, unspecified organism Status: Acute Plan: On Ceftriaxone and Zithromax. (3) Type 2 diabetes mellitus with diabetic chronic kidney disease ICD Codes: E11.22 - Type 2 diabetes mellitus with diabetic chronic kidney disease Plan: insulin coverage. Avoid metformin. She has heavy proteinuria. (4) Proteinuria ICD Codes: R80.9 - Proteinuria, unspecified Plan: See above. Likely has diabetic nephropathy associated with heavy proteinuria. Serologies are negative. Problem Qualifiers (1) Pneumonia: Qualified Codes: J18.9 - Pneumonia, unspecified organism Jean Carlos Dalton MD Jun 05, 2017 17:49
[2017-06-06] VITALS (11 sets, daily range): BP systolic 135–154; BP diastolic 68–92; PULSE 85–92; RESP 18–22; TEMP 98.5–99.1; O2SAT 92–98
[2017-06-06] MEDS: RESP: ALBUTEROL 2.5 MG/IPRATROPIUM 0.5 MG NEB (SCH) INH ×4 (03:38→19:03)
[2017-06-06] MEDS: CHLORHEXIDINE GLUCONATE 2 % 1 PACK (2 CLOTHS) TOP SCH (03:44)
[2017-06-06] MEDS: HEPARIN SODIUM - SQ 10,000 UNITS/ML VIAL SQ SCH ×2 (03:44→17:41)
[2017-06-06] MEDS: INSULIN ASPART SUPPLEMENTAL SCALE SQ SCH ×4 (08:00→20:16)
[2017-06-06] MEDS: FAMOTIDINE 20 MG/2 ML VIAL IV PUSH SCH ×2 (08:24→20:14)
[2017-06-06] MEDS: ATENOLOL 50 MG TAB PO SCH (08:24)
[2017-06-06] MEDS: DOCUSATE SODIUM 50 MG/SENNA 8.6 MG TAB PO SCH ×2 (08:24→20:16)
[2017-06-06] MEDS: INSULIN DETEMIR 100 UNITS/ML VIAL SQ SCH ×2 (08:24→20:15)
[2017-06-06] MEDS: SODIUM CHLORIDE 0.9% FLUSH 10 ML FLUSH IV FLUSH SCH ×2 (08:24→21:00)
--- NOTE | 2017-06-06 09:56 | HHI.PR ---
Subjective Remarks The patient says that she has a cough that causes her pain in her chest at times. She says she feels like she has mucus that she is unable to cough up. She says she feels like overall she is getting better. She feels stronger. She has been tolerating a diet and has been sleeping. Objective Vitals Vital Signs Date Time Temp Pulse Resp B/P (MAP) Pulse Ox O2 Delivery O2 Flow Rate FiO2 06/06/17 09:09 Nasal Cannula 2.00 06/06/17 08:01 98.6 88 22 140/88 (105) 92 06/06/17 04:00 Bi-Pap 06/06/17 04:00 98.8 89 18 149/68 (95) 98 06/06/17 03:43 96 BiPAP 35 06/06/17 03:43 96 35 06/06/17 00:49 18 06/06/17 00:00 Nasal Cannula 2.00 06/06/17 00:00 98.9 92 19 140/92 (108) 94 06/05/17 20:40 92 06/05/17 20:00 98.3 92 19 146/79 (101) 94 06/05/17 16:59 94 Nasal Cannula 2.00 06/05/17 16:01 98.8 98 20 142/74 (96) 94 06/05/17 12:01 98.7 100 22 146/76 (99) 94 06/05/17 10:35 98.6 103 22 148/78 (101) 93 I/O 06/05/17 06/05/17 06/05/17 06/06/17 06/06/17 06/06/17 07:00 15:00 23:00 07:00 15:00 23:00 Intake Total 240 ml 360 ml 240 ml Output Total 450 ml Balance -210 ml 360 ml 240 ml Intake Oral 240 ml 360 ml 240 ml Output Urine Total 450 ml # Voids 3 1 # Bowel Movements 0 2 0 Result Diagram: 06/04/17 0647 06/05/17 1226 Imaging Last Impressions Chest X-Ray 06/04/17 0600 Signed Impressions: Service Date/Time: May 04:14 - CONCLUSION: Persistent airspace opacities and small to moderate pleural effusions on both sides. Arturo Lay MD Renal Ultrasound 11/22/17 0000 Signed Impressions: Service Date/Time: Saturday, June 03, 2017 08:13 - CONCLUSION: Normal examination. Keyshawn Holguin MD Chest CT 06/03/17 Signed Impressions: Service Date/Time: Saturday, June 03, 2017 09:25 - CONCLUSION: Bilateral areas of consolidation and pleural effusions. Fullness of the anterior- superior mediastinal adenopathy versus fluid. Keyshawn Holguin MD Abdomen/Pelvis CT 06/03/17 Signed Impressions: Service Date/Time: Saturday, June 03, 2017 09:22 - CONCLUSION: Diffuse edema throughout the body wall. Previous hernia repair which has become posterior displaced from the abdominal wall anteriorly. Solid organs are unremarkable. No bowel wall thickening is identified. Keyshawn Holguin MD Lower Extremity Ultrasound 06/02/17 Signed Impressions: Service Date/Time: Friday, June 02, 2017 18:37 - CONCLUSION: The study is negative for deep venous thrombosis bilateral lower extremity. Bruce Calix MD Objective Remarks GENERAL: Obese female, lying in bed in no acute distress. SKIN: Warm and dry. HEAD: Atraumatic. Normocephalic. EYES: Pupils equal and round. No scleral icterus. No injection or drainage. ENT: No nasal bleeding or discharge. Mucous membranes pink and moist. NECK: Trachea midline. No JVD. CARDIOVASCULAR: Normal rate, regular rhythm. RESPIRATORY: No accessory muscle use. Clear to auscultation. Breath sounds equal bilaterally. GASTROINTESTINAL: Abdomen soft, non-tender, protuberant nondistended. No guarding. Normoactive bowel sounds MUSCULOSKELETAL: TR bilateral lower extremity edema. NEUROLOGICAL: Awake and alert. No gross focal/sensory deficits. Follows commands in all 4 extremities. PSYCH: Mood and affect appropriate. Medications and IVs Current Medications Medications (Trade) Dose Ordered Sig/Maty Route Start Time Stop Time Status Last Admin (NS Flush) 2 ml UNSCH PRN IV FLUSH 06/02/17 15:15 (NS Flush) 2 ml BID IV FLUSH 06/02/17 21:00 06/06/17 08:24 (Tylenol) 650 mg Q6H PRN PO 06/02/17 15:15 06/05/17 23:14 (Pepcid Inj) 10 mg Q12HR IV PUSH 06/02/17 21:00 06/06/17 08:24 (Zofran Inj) 4 mg Q6H PRN IV PUSH 06/02/17 15:15 (Duoneb Neb) 1 ampule Q6HR NEB INH 06/02/17 16:00 06/06/17 09:41 (Duoneb Neb) 1 ampule Q2HR NEB PRN INH 06/02/17 15:15 (Heparin Inj) 5,000 units Q12H SQ 06/02/17 16:00 06/06/17 03:44 Miscellaneous Information 1 Q361D XX 06/02/17 15:15 (Chlorhexidine 2% Cloth) 3 pack Taper DAILY@04 TOP 06/03/17 04:00 05/30/18 03:59 06/06/17 03:44 (Chlorhexidine 2% Cloth) 3 pack UNSCH PRN TOP 06/02/17 15:15 (Adelina-Colace) 1 tab BID PO 06/02/17 21:00 06/06/17 08:24 (Milk Of Magnesia Liq) 30 ml Q12H PRN PO 06/02/17 15:15 (Senokot) 17.2 mg Q12H PRN PO 06/02/17 15:15 (Dulcolax Supp) 10 mg DAILY PRN RECTAL 06/02/17 15:15 (Lactulose Liq) 30 ml DAILY PRN PO 06/02/17 15:15 (D50w (Vial) Inj) 50 ml UNSCH PRN IV PUSH 06/02/17 15:30 (Glucagon Inj) 1 mg UNSCH PRN OTHER 06/02/17 15:30 (NovoLOG SUPPLEMENTAL SCALE) 1 ACHS SLIDING SCALE SQ 06/02/17 17:00 06/05/17 12:00 Azithromycin 500 mg/Sodium Chloride 250 ml @ 250 mls/hr Q24H IV 06/03/17 14:00 06/05/17 14:00 Ceftriaxone Sodium 2000 mg/ Sodium Chloride 100 ml @ 200 mls/hr Q24H IV 06/02/17 18:00 06/05/17 17:44 Acetaminophen 100 ml @ 400 mls/hr Q8H PRN IV 06/02/17 20:15 (Tenormin) 50 mg DAILY PO 06/05/17 09:00 06/06/17 08:24 (Apresoline Inj) 20 mg Q4H PRN IV PUSH 06/04/17 12:15 06/05/17 08:49 (Levemir Inj) 20 units Q12HR SQ 06/04/17 21:00 06/06/17 08:24 (Robitussin Liq) 200 mg Q6H PRN PO 06/04/17 22:00 06/05/17 20:43 (Norvasc) 10 mg DAILY PO 06/06/17 10:15 UNV A/P Problem List: (1) UTI (urinary tract infection) ICD Code: N39.0 - Urinary tract infection, site not specified (2) Renal failure ICD Code: N19 - Unspecified kidney failure Status: Acute (3) Hypoxia ICD Code: R09.02 - Hypoxemia Status: Acute (4) Sepsis ICD Code: A41.9 - Sepsis, unspecified organism Status: Acute (5) Pneumonia ICD Code: J18.9 - Pneumonia, unspecified organism Status: Acute Assessment and Plan Community-acquired pneumonia Methemoglobinemia level 3.6. Denial past medical history genetic predisposition of G6PD, E5 reductase deficiency . 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 Methylene blue 100 mg IV, ascorbic acid 100 mg IV. 06/04 chest x-ray with persistent infiltrates and bilateral effusions. Legionella and pneumococcal urine antigen-negative. - On Rocephin and azithromycin. - Maintain O2 sat greater than 92% FiO2 as tolerated. - Serial chest x-rays and ABGs as clinically indicated. - Bronchodilators every 6 hours scheduled for wheezing. - Pulmonology consult requested. - sputum and blood cultures pending. - Incentive spirometry. Acute congestive heart failure, likely diastolic Initial BMP 949 now downtrended 343. Troponin 0.03->0.04->0.04. 06/04 echo with EF 50-55%. - Telemetry. - Patient home meds include Lasix 20 mg/day and lisinopril 30 mg/day on hold secondary to renal insufficiency. - Continue atenolol and amlodipine. BAN I the setting of chronic kidney disease. S/p IVFs. Creatinine: Protein Ratio elevated. 06/02 Renal ultrasound-no hydronephrosis. - Nephrology following. - strict Is and Os. - Holding Lasix and lisinopril. Anemia 06/03 peripheral smear- hypochromic anemia. Likely anemia of chronic disease. - follow CBC. Diabetes mellitus Well controlled. - inulin sliding scale. - Levemir. PPx: Heparin Discharge Planning Awaiting pulmonology consult Problem Qualifiers (1) Renal failure: Qualified Codes: N19 - Unspecified kidney failure (2) Sepsis: Qualified Codes: A41.9 - Sepsis, unspecified organism (3) Pneumonia: Qualified Codes: J18.9 - Pneumonia, unspecified organism Romain Washington DO Jun 06, 2017 09:56
[2017-06-06 10:37] LABS: BICARBONATE 19.4 MEQ/L (21.0-32.0); MAGNESIUM 2.1 MG/DL (1.5-2.5); POTASSIUM 4.7 MEQ/L (3.5-5.1)
[2017-06-06 11:00] LABS: HEMATOCRIT 27.9 % (35.0-46.0); MEAN CORPUSCULAR HEMOGLOBIN 29.2 PG (27.0-34.0); MEAN CORPUSCULAR HGB CONC 32.8 % (32.0-36.0); PLATELET COUNT 215 TH/MM3 (150-450); RED BLOOD COUNT 3.13 MIL/MM3 (4.00-5.30); RED CELL DISTRIBUTION WIDTH 16.2 % (11.6-17.2); REVIEW FLAG FINAL; WHITE BLOOD COUNT 10.1 TH/MM3 (4.0-11.0)
[2017-06-06] MEDS: guaiFENesin/CODEINE SYRUP 200 MG/20 MG/10 ML CUP PO PRN ×2 (13:39→20:23)
[2017-06-06] MEDS: AZITHROMYCIN INJ 500 MG in SODIUM CHLOR 0.9% 250 ML INJ 250 ML IV SCH (14:00)
[2017-06-06] MEDS ORDERED: RESP: ALBUTEROL 2.5 MG/IPRATROPIUM 0.5 MG NEB (SCH) INH (16:00)
--- NOTE | 2017-06-06 17:21 | MB ---
cc: Rui SWEET DATE OF CONSULTATION: 06/06/17 HISTORY OF PRESENT ILLNESS A 47-year-old black female of [place] nationality presented to the emergency room on 06/02 with chills, aches and pains and a fever. She was also dyspneic. Initial evaluation revealed hypoxemia with a mild elevation in methemoglobin at 3% on arterial blood gas, and chest x-ray with pneumonia at the right base and a subsequent CT revealed bilateral lower lobe infiltrates. She was admitted to the Intensive Care Unit with respiratory insufficiency, started on BiPAP, Rocephin and Zithromax for probable community-acquired pneumonia and eventually also got methylene blue and vitamin C for the methemoglobin. That value has dropped from 3.7 to 2.7 over the course of the last 48 hours. The patient has not any previous pulmonary disease. She never smoked. She denies prior history of pneumonia. She had traveled here from [place] to spend the holidays with family locally. No unusual exposures to animals. No other people that she has been around have been sick that she is aware of. Her cultures of blood and urine have been negative, a nasal aspirate was negative for on influenza A and B, and urine was negative for Legionella or streptococcal antigen. She has improved considerably. She is much less short of breath. She still has a mild elevation in temperature at 99, and she has gone down to 2 liters of oxygen with sats of 93%. PAST MEDICAL/SURGICAL HISTORY She is diabetic and hypertensive. She has had a previous appendectomy, but no other major internal surgeries otherwise. SOCIAL HISTORY No alcohol use. ALLERGIES NONE KNOWN. MEDICATIONS Current medications are reviewed in the EMR. REVIEW OF SYSTEMS She does have pain when she coughs now, it is not pleuritic. She has had no hemoptysis, very little sputum production at present with no purulent sputum. He has chronic swelling in her legs but she says it seems worse. She has had no diarrhea, nausea or vomiting recently. She has never been told in the past that she had a blood disorder. It appears it is the first time that she has had any type of methemoglobin identified. She is not from this area although she does follow with physicians regularly in [place] where she is from. PHYSICAL EXAMINATION GENERAL: Obese black female, in no distress at rest, actually very comfortable. VITAL SIGNS: 99 degrees, 150/70, pulse is 85, respirations are 18-22, and her sat is 93% on 2 liters. HEENT: Sclerae are anicteric. Mucous membranes are moist. NECK: Neck veins are flat. RESPIRATORY: Breath sounds are diminished at the bases but no rhonchi, no wheezes. CARDIOVASCULAR: Regular heart rhythm. ABDOMEN: Abdomen is obese. EXTREMITIES: She has 1+ pretibial edema both legs. No calf tenderness. LABORATORY DATA White blood cell count was 11.7 now 10. She came in with a hemoglobin is 6.6, it is up to 9.1. Platelets are normal. No CO2 retention, pCO2 is 38 on 2 liters. BUN and creatinine are elevated at 28 and 2.95. Coag profile is normal. She does have proteinuria and is being followed by Nephrology. MRSA not detected in the nasal swab. Hepatitis and HIV serologies are negative. DISCUSSION Ms. Lara presents with bilateral lower lobe pneumonia, really quite obese and also diabetic. Does not appear to have obesity hypoventilation, but I would not be surprised if she has sleep apnea and she says she does have very restless sleep. No specific organisms have been identified but she is doing well on the Rocephin and Zithromax. I would continue that for the next 24-48 hours and if stable at that point we could switch her to oral therapy. We will also continue pulmonary therapy to improve aeration at the bases. Her methemoglobin is still mildly elevated but not of any clinical consequence at present. I have encouraged her to followup on this when she returns home which she plans on doing when discharged. Have her personal physician there have a director of clinical services see her to document whether or not she has a genetic deficiency causing this methemoglobin abnormality. Further diagnostic and/or therapeutic intervention will depend on her ongoing clinical course. R. MD KEV Moss/ALEXANDRA /4:43 PM /4:56 PM
[2017-06-06] MEDS: cefTRIAXone INJ 2,000 MG in SODIUM CHLORIDE 0.9% INJ 100 ML IV SCH (18:00)
[2017-06-07] VITALS (11 sets, daily range): BP systolic 121–157; BP diastolic 55–88; PULSE 78–86; RESP 19–21; TEMP 97.4–98.5; O2SAT 93–100
[2017-06-07] MEDS: HEPARIN SODIUM - SQ 10,000 UNITS/ML VIAL SQ SCH ×2 (03:29→17:25)
[2017-06-07] MEDS: CHLORHEXIDINE GLUCONATE 2 % 1 PACK (2 CLOTHS) TOP SCH (03:29)
[2017-06-07 07:13] LABS: HEMATOCRIT 26.6 % (35.0-46.0); MEAN CELL VOLUME 86.8 FL (80.0-100.0); MEAN CORPUSCULAR HEMOGLOBIN 28.2 PG (27.0-34.0); MEAN CORPUSCULAR HGB CONC 32.5 % (32.0-36.0); PLATELET COUNT 269 TH/MM3 (150-450); RED BLOOD COUNT 3.06 MIL/MM3 (4.00-5.30); REVIEW FLAG FINAL; WHITE BLOOD COUNT 8.8 TH/MM3 (4.0-11.0)
[2017-06-07 07:27] LABS: BICARBONATE 22.9 MEQ/L (21.0-32.0); MAGNESIUM 2.2 MG/DL (1.5-2.5); POTASSIUM 4.2 MEQ/L (3.5-5.1)
[2017-06-07] MEDS: RESP: ALBUTEROL 2.5 MG/IPRATROPIUM 0.5 MG NEB (SCH) INH ×3 (08:00→20:18)
[2017-06-07] MEDS: INSULIN ASPART SUPPLEMENTAL SCALE SQ SCH ×4 (08:00→20:07)
[2017-06-07] MEDS: INSULIN DETEMIR 100 UNITS/ML VIAL SQ SCH (08:28)
[2017-06-07] MEDS: DOCUSATE SODIUM 50 MG/SENNA 8.6 MG TAB PO SCH (08:40)
[2017-06-07] MEDS: FAMOTIDINE 20 MG/2 ML VIAL IV PUSH SCH (08:40)
[2017-06-07] MEDS: SODIUM CHLORIDE 0.9% FLUSH 10 ML FLUSH IV FLUSH SCH ×2 (08:40→20:07)
[2017-06-07] MEDS: ATENOLOL 50 MG TAB PO SCH (08:40)
[2017-06-07] MEDS ORDERED: CYANOCOBALAMIN 1000 MCG/ML VIAL IM ONE (10:00)
--- NOTE | 2017-06-07 10:03 | HHI.PR ---
Subjective Remarks The patient said that her cell phone was not charging. She said she felt very dizzy this morning when her blood sugar was low. She currently feels better. She still has shortness of breath and feels like her legs are swollen. Discussed with nursing. Objective Vitals Vital Signs Date Time Temp Pulse Resp B/P (MAP) Pulse Ox O2 Delivery O2 Flow Rate FiO2 06/07/17 09:22 Nasal Cannula 2.00 06/07/17 08:29 96 Nasal Cannula 2.00 06/07/17 08:01 98.5 83 20 148/67 (94) 98 06/07/17 04:00 Bi-Pap 06/07/17 04:00 98.1 78 19 121/55 (77) 98 06/07/17 03:52 95 30 06/07/17 00:00 Nasal Cannula 2.00 06/07/17 00:00 98.1 86 20 148/79 (102) 96 06/06/17 21:06 89 06/06/17 20:15 Nasal Cannula 2.00 06/06/17 20:00 98.5 90 21 135/77 (96) 96 06/06/17 16:01 98.9 89 20 146/68 (94) 94 06/06/17 15:22 93 Nasal Cannula 2.00 06/06/17 12:01 99.1 91 22 154/70 (98) 93 06/06/17 10:42 85 I/O 06/06/17 06/06/17 06/06/17 06/07/17 06/07/17 06/07/17 07:00 15:00 23:00 07:00 15:00 23:00 Intake Total 240 ml 420 ml 550 ml Balance 240 ml 420 ml 550 ml Intake Oral 240 ml 420 ml 550 ml # Voids 1 4 4 # Bowel Movements 0 1 Result Diagram: 06/07/17 0604 06/07/17 0604 Imaging Last Impressions Chest X-Ray 06/04/17 0600 Signed Impressions: Service Date/Time: May 04:14 - CONCLUSION: Persistent airspace opacities and small to moderate pleural effusions on both sides. Arturo Lay MD Renal Ultrasound 06/03/17 0000 Signed Impressions: Service Date/Time: Saturday, June 03, 2017 08:13 - CONCLUSION: Normal examination. Keyshawn Holguin MD Chest CT 06/03/17 0000 Signed Impressions: Service Date/Time: Saturday, June 03, 2017 09:25 - CONCLUSION: Bilateral areas of consolidation and pleural effusions. Fullness of the anterior- superior mediastinal adenopathy versus fluid. Keyshawn Holguin MD Abdomen/Pelvis CT 06/03/17 0000 Signed Impressions: Service Date/Time: Saturday, June 03, 2017 09:22 - CONCLUSION: Diffuse edema throughout the body wall. Previous hernia repair which has become posterior displaced from the abdominal wall anteriorly. Solid organs are unremarkable. No bowel wall thickening is identified. Keyshawn Holguin MD Lower Extremity Ultrasound 06/02/17 0000 Signed Impressions: Service Date/Time: Friday, June 02, 2017 18:37 - CONCLUSION: The study is negative for deep venous thrombosis bilateral lower extremity. Bruce Calix MD Objective Remarks GENERAL: Obese female, lying in bed in no acute distress. SKIN: Warm and dry. HEAD: Atraumatic. Normocephalic. EYES: Pupils equal and round. No scleral icterus. No injection or drainage. ENT: No nasal bleeding or discharge. Mucous membranes pink and moist. NECK: Trachea midline. No JVD. CARDIOVASCULAR: Normal rate, regular rhythm. RESPIRATORY: No accessory muscle use. Bilateral crackles appreciated. GASTROINTESTINAL: Abdomen soft, non-tender, protuberant nondistended. No guarding. Normoactive bowel sounds MUSCULOSKELETAL: TR bilateral lower extremity edema. NEUROLOGICAL: Awake and alert. No gross focal/sensory deficits. Follows commands in all 4 extremities. PSYCH: Mood and affect appropriate. Medications and IVs Current Medications Medications (Trade) Dose Ordered Sig/Maty Route Start Time Stop Time Status Last Admin (NS Flush) 2 ml UNSCH PRN IV FLUSH 06/02/17 15:15 (NS Flush) 2 ml BID IV FLUSH 06/02/17 21:00 06/07/17 08:40 (Tylenol) 650 mg Q6H PRN PO 06/02/17 15:15 06/05/17 23:14 (Zofran Inj) 4 mg Q6H PRN IV PUSH 06/02/17 15:15 (Duoneb Neb) 1 ampule Q2HR NEB PRN INH 06/02/17 15:15 (Heparin Inj) 5,000 units Q12H SQ 06/02/17 16:00 06/07/17 03:29 Miscellaneous Information 1 Q361D XX 06/02/17 15:15 (Chlorhexidine 2% Cloth) 3 pack Taper DAILY@04 TOP 06/03/17 04:00 05/30/18 03:59 06/07/17 03:29 (Chlorhexidine 2% Cloth) 3 pack UNSCH PRN TOP 06/02/17 15:15 (Milk Of Magnesia Liq) 30 ml Q12H PRN PO 06/02/17 15:15 (Senokot) 17.2 mg Q12H PRN PO 06/02/17 15:15 (Dulcolax Supp) 10 mg DAILY PRN RECTAL 06/02/17 15:15 (Lactulose Liq) 30 ml DAILY PRN PO 06/02/17 15:15 (D50w (Vial) Inj) 50 ml UNSCH PRN IV PUSH 06/02/17 15:30 (Glucagon Inj) 1 mg UNSCH PRN OTHER 06/02/17 15:30 (NovoLOG SUPPLEMENTAL SCALE) 1 ACHS SLIDING SCALE SQ 06/02/17 17:00 06/05/17 12:00 Azithromycin 500 mg/Sodium Chloride 250 ml @ 250 mls/hr Q24H IV 06/03/17 14:00 06/06/17 14:00 Ceftriaxone Sodium 2000 mg/ Sodium Chloride 100 ml @ 200 mls/hr Q24H IV 06/02/17 18:00 06/06/17 18:00 Acetaminophen 100 ml @ 400 mls/hr Q8H PRN IV 06/02/17 20:15 (Tenormin) 50 mg DAILY PO 06/05/17 09:00 06/07/17 08:40 (Apresoline Inj) 20 mg Q4H PRN IV PUSH 06/04/17 12:15 06/05/17 08:49 (Norvasc) 10 mg DAILY PO 06/06/17 10:30 06/07/17 08:40 (Robitussin Ac 200-20 Mg/10 ml Liq) 10 ml Q6H PRN PO 06/06/17 10:15 06/06/17 20:23 (Duoneb Neb) 1 ampule TID NEB INH 06/06/17 20:00 06/06/17 19:03 (Vitamin B12 Inj) 1,000 mcg ONCE ONCE IM 06/07/17 10:00 06/07/17 10:01 A/P Problem List: (1) UTI (urinary tract infection) ICD Code: N39.0 - Urinary tract infection, site not specified (2) Renal failure ICD Code: N19 - Unspecified kidney failure Status: Acute (3) Hypoxia ICD Code: R09.02 - Hypoxemia Status: Acute (4) Sepsis ICD Code: A41.9 - Sepsis, unspecified organism Status: Acute (5) Pneumonia ICD Code: J18.9 - Pneumonia, unspecified organism Status: Acute Assessment and Plan Community-acquired pneumonia Methemoglobinemia level 3.6. Denial past medical history genetic predisposition of G6PD, E5 reductase deficiency . 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 Methylene blue 100 mg IV, ascorbic acid 100 mg IV. 06/04 chest x-ray with persistent infiltrates and bilateral effusions. Legionella and pneumococcal urine antigen-negative. Appreciate pulmonology consult. - continue IV Rocephin and azithromycin. - Maintain O2 sat greater than 92% FiO2 as tolerated. - Bronchodilators every 6 hours scheduled. - Pulmonology following. - sputum and blood cultures pending. - Incentive spirometry. Acute congestive heart failure, likely diastolic Initial BMP 949 now downtrended 343. Troponin 0.03->0.04->0.04. 06/04 echo with EF 50-55%. - Telemetry. - Patient home meds include Lasix 20 mg/day and lisinopril 30 mg/day on hold secondary to renal insufficiency. Will resume Lasix 20 mg BID as the pt is clinically volume overloaded. - Continue atenolol and amlodipine. BAN I the setting of chronic kidney disease. S/p IVFs. Creatinine: Protein Ratio elevated. 06/02 Renal ultrasound-no hydronephrosis. - Nephrology following. - strict Is and Os. - Holding lisinopril. - monitor BMP while diuresing. Anemia 06/03 peripheral smear- hypochromic anemia. Likely anemia of chronic disease. B12 level was borderline low. - follow CBC. - B12 IM x 1. Diabetes mellitus Has been hypoglycemic. - inulin sliding scale. - d/c Levemir. - check A1c. PPx: Heparin Discharge Planning Awaiting improvement in respiratory status. Problem Qualifiers (1) Renal failure: Qualified Codes: N19 - Unspecified kidney failure (2) Sepsis: Qualified Codes: A41.9 - Sepsis, unspecified organism (3) Pneumonia: Qualified Codes: J18.9 - Pneumonia, unspecified organism Romain Washington DO Jun 07, 2017 10:03
[2017-06-07] MEDS: FUROSEMIDE 20 MG TAB PO SCH ×2 (10:45→17:26)
[2017-06-07] MEDS: guaiFENesin/CODEINE SYRUP 200 MG/20 MG/10 ML CUP PO PRN (10:46)
[2017-06-07 11:25] LABS: HEMOGLOBIN A1a 1.4 %; HEMOGLOBIN A1b 0.7 %; HEMOGLOBIN LA1C 1.2 %; HEMOGLOBIN P3 3.1 %
[2017-06-07] MEDS: AZITHROMYCIN INJ 500 MG in SODIUM CHLOR 0.9% 250 ML INJ 250 ML IV SCH (13:24)
--- NOTE | 2017-06-07 15:27 | RADRPT ---
EXAM DATE/TIME: 06/07/2017 14:56 [facility] COMPARISON: No previous studies available for comparison. INDICATIONS : Evaluate for pneumonia MEDICAL HISTORY : Cardiovascular disease. Diabetes mellitus type 2. SURGICAL HISTORY : Appendectomy. ENCOUNTER: Subsequent ACUITY: 4 - 6 days PAIN SCORE: 0/10 LOCATION: chest FINDINGS: There is cardiomegaly. There is mild basilar airspace disease and small effusions. Differential diagn osis includes mild congestive heart failure and bronchopneumonia at the lung bases. No pneumothorax. CONCLUSION: 1. Mild basilar airspace disease with small effusions. Bilateral airspace disease has improved since June 04. Differential diagnosis includes bronchopneumonia and edema. Jonathan Oliveros MD on June 07, 2017 at 15:24 Board Certified Radiologist. This report was verified electronically.
[2017-06-07] MEDS: cefTRIAXone INJ 2,000 MG in SODIUM CHLORIDE 0.9% INJ 100 ML IV SCH (17:25)
[2017-06-08] VITALS: BP 168/79; PULSE 85; RESP 20; TEMP 98.1; O2SAT 97
[2017-06-08 01:00] VITALS: BP 156/88
[2017-06-08] MEDS: CHLORHEXIDINE GLUCONATE 2 % 1 PACK (2 CLOTHS) TOP SCH (03:14)
[2017-06-08] MEDS: HEPARIN SODIUM - SQ 10,000 UNITS/ML VIAL SQ SCH ×2 (03:14→16:00)
[2017-06-08 04:00] VITALS: BP 156/86; PULSE 81; RESP 20; TEMP 98.3; O2SAT 100
[2017-06-08] MEDS: RESP: ALBUTEROL 2.5 MG/IPRATROPIUM 0.5 MG NEB (SCH) INH ×2 (07:43→12:57)
[2017-06-08 08:00] VITALS: BP 154/73; PULSE 83; RESP 16; TEMP 98.5; O2SAT 97
[2017-06-08 08:03] LABS: HEMATOCRIT 28.1 % (35.0-46.0); MEAN CELL VOLUME 86.9 FL (80.0-100.0); MEAN CORPUSCULAR HEMOGLOBIN 28.7 PG (27.0-34.0); PLATELET COUNT 287 TH/MM3 (150-450); RED BLOOD COUNT 3.24 MIL/MM3 (4.00-5.30); RED CELL DISTRIBUTION WIDTH 16.2 % (11.6-17.2); REVIEW FLAG FINAL; WHITE BLOOD COUNT 7.2 TH/MM3 (4.0-11.0)
[2017-06-08 08:27] LABS: BICARBONATE 23.6 MEQ/L (21.0-32.0); MAGNESIUM 2.1 MG/DL (1.5-2.5); POTASSIUM 4.5 MEQ/L (3.5-5.1)
[2017-06-08] MEDS: INSULIN ASPART SUPPLEMENTAL SCALE SQ SCH ×3 (08:55→17:00)
[2017-06-08] MEDS: SODIUM CHLORIDE 0.9% FLUSH 10 ML FLUSH IV FLUSH SCH (08:55)
[2017-06-08] MEDS: FUROSEMIDE 20 MG TAB PO SCH ×2 (08:56→18:00)
[2017-06-08] MEDS: ATENOLOL 50 MG TAB PO SCH (08:56)
[2017-06-08] MEDS ORDERED: LEVOFLOXACIN 250 MG TAB PO SCH (09:00)
[2017-06-08] MEDS ORDERED: ALBUAER3 INH (09:34)
[2017-06-08] MEDS ORDERED: LEVEMIR SQ (09:34)
[2017-06-08] MEDS ORDERED: LEVA250T14 PO (09:34)
[2017-06-08] MEDS ORDERED: LISI10TA3 PO (09:34)
--- NOTE | 2017-06-08 09:35 | HHI.DCPOC ---
Discharge Care Plan Diagnosis: (1) Type 2 diabetes mellitus with diabetic chronic kidney disease (2) BAN (acute kidney injury) (3) Proteinuria (4) Pneumonia (5) Sepsis (6) Hypoxia (7) Renal failure Goals to Promote Your Health * To prevent worsening of your condition and complications * To maintain your health at the optimal level Directions to Meet Your Goals Take your medications as prescribed Follow your dietary instruction Follow activity as directed Keep your appointments as scheduled Take your immunizations and boosters as scheduled If your symptoms worsen call your PCP, if no PCP go to Urgent Care Center or Emergency Room Smoking is Dangerous to Your Health. Avoid second hand smoke Call the 24-hour hour crisis hotline for domestic abuse at Romain Washington DO Jun 08, 2017 09:35
--- NOTE | 2017-06-08 09:38 | HHI.DS ---
Discharge Summary Admission Date Jun 02, 2017 at 14:42 Discharge Date: Jun 08, 2017 Admitting Diagnosis pneumonia, hypoxia (1) UTI (urinary tract infection) ICD Code: N39.0 - Urinary tract infection, site not specified Diagnosis: Principal (2) Renal failure ICD Code: N19 - Unspecified kidney failure Status: Acute (3) Hypoxia ICD Code: R09.02 - Hypoxemia Diagnosis: Principal Status: Acute (4) Sepsis ICD Code: A41.9 - Sepsis, unspecified organism Diagnosis: Principal Status: Acute (5) Pneumonia ICD Code: J18.9 - Pneumonia, unspecified organism Diagnosis: Principal Status: Acute (6) Type 2 diabetes mellitus with diabetic chronic kidney disease ICD Code: E11.22 - Type 2 diabetes mellitus with diabetic chronic kidney disease (7) BAN (acute kidney injury) ICD Code: N17.9 - Acute kidney failure, unspecified (8) Proteinuria ICD Code: R80.9 - Proteinuria, unspecified Procedures None Brief History - From Admission History of Present Illness HPI This is a 47-year-old female that presented with shortness of breath, body aches, chills and malaise. The patient recently traveled from [place] on a 5 [address] ride. Initial O2 saturation was on in the 50s on room air. The patient was placed on nonrebreather oxygen with improvement of O2 saturation. The patient was noted to be febrile upon presentation with a temperature of 100.1. Laboratory and imaging studies were performed in the ED the patient was noted to have a leukocytosis and imaging studies revealed an infiltrate of the right lung base. 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 Attempts made to locate patient's previous home medications as patient is a poor historian. Patient notably on glipizide a sulfonylurea, concern for acquired versus genetic predisposition for methemoglobinemia.The patient received in the ED 1 L IV fluid in conjunction with cefepime and azithromycin. Critical care medicine was consulted for management History PFSH Past Medical History Cardiovascular Problems: Yes Diabetes: Yes Patient Takes Glucophage: Yes Diminished Hearing: No Hypertension: Yes Influenza Vaccination: No ?: Not Menopausal: Yes Past Surgical History Appendectomy: Yes Other Surgery: Yes (FOOT SX- EVE. GREAT TOE SX) Social History Alcohol Use: No Tobacco Use: No Substance Use: No Allergies-Medications Allergies-Medications (Allergen,Severity, Reaction): Coded Allergies: No Known Allergies (Unverified , 06/02/17) Reported Meds & Prescriptions Reported Meds & Active Scripts Active Reported Humalog Inj (Insulin Human Lispro) 1,000 Unit/10 Ml Vial 2-12 Units SQ TIDAC Max dose at bedtime:( )units; sugars < 70,(0)units; sugars 150-199,(2)units; sugars 200-249,(4)units; sugars 250-299,(7)units; sugars 300-349,(10)units; sugars more than 349,(12)units. Levemir Flextouch Pen Inj (Insulin Detemir) 300 unit/3 ML Pen 30 Units SQ BIDAC Glipizide XL (Glipizide) 10 Mg Allan 10 Mg PO DAILY Take with breakfast or first main meal of the day Atenolol 50 Mg Tab 50 Mg PO DAILY Lisinopril 30 Mg Tab 30 Mg PO DAILY Furosemide 20 Mg Tab 20 Mg PO DAILY Amlodipine (Amlodipine Besylate) 10 Mg Tab 10 Mg PO DAILY ROS Review of Systems ROS Limitations: Poor Historian Except as stated in HPI: all other systems reviewed are Neg CBC/BMP: 06/08/17 0605 06/08/17 0605 Significant Findings Laboratory Tests Test 06/05/17 12:26 06/06/17 05:32 06/07/17 06:04 06/08/17 06:05 Blood Urea Nitrogen 28 MG/DL (7-18) 28 MG/DL (7-18) 32 MG/DL (7-18) 34 MG/DL (7-18) Creatinine 2.94 MG/DL (0.50-1.00) 2.95 MG/DL (0.50-1.00) 2.91 MG/DL (0.50-1.00) 3.16 MG/DL (0.50-1.00) Random Glucose 147 MG/DL (74-106) 55 MG/DL (74-106) 42 MG/DL (74-106) 209 MG/DL (74-106) Albumin 1.9 GM/DL (3.4-5.0) Chloride Level 111 MEQ/L (98-107) 113 MEQ/L (98-107) 114 MEQ/L (98-107) 111 MEQ/L (98-107) Estimat Glomerular Filtration Rate 17 ML/MIN (>89) 17 ML/MIN (>89) 17 ML/MIN (>89) 16 ML/MIN (>89) Red Blood Count 3.13 MIL/MM3 (4.00-5.30) 3.06 MIL/MM3 (4.00-5.30) 3.24 MIL/MM3 (4.00-5.30) Hemoglobin 9.1 GM/DL (11.6-15.3) 8.6 GM/DL (11.6-15.3) 9.3 GM/DL (11.6-15.3) Hematocrit 27.9 % (35.0-46.0) 26.6 % (35.0-46.0) 28.1 % (35.0-46.0) Calcium Level 8.3 MG/DL (8.5-10.1) 8.4 MG/DL (8.5-10.1) 8.4 MG/DL (8.5-10.1) Carbon Dioxide Level 19.4 MEQ/L (21.0-32.0) Hemoglobin A1c 7.8 % (4.3-6.0) Imaging Last Impressions Chest X-Ray 06/04/17 0600 Signed Impressions: Service Date/Time: May 04:14 - CONCLUSION: Persistent airspace opacities and small to moderate pleural effusions on both sides. Arturo Lay MD Renal Ultrasound 06/03/17 0000 Signed Impressions: Service Date/Time: Saturday, June 03, 2017 08:13 - CONCLUSION: Normal examination. Keyshawn Holguin MD Chest CT 06/03/17 0000 Signed Impressions: Service Date/Time: Saturday, June 03, 2017 09:25 - CONCLUSION: Bilateral areas of consolidation and pleural effusions. Fullness of the anterior- superior mediastinal adenopathy versus fluid. Keyshawn Holguin MD Abdomen/Pelvis CT 06/03/17 0000 Signed Impressions: Service Date/Time: Saturday, June 03, 2017 09:22 - CONCLUSION: Diffuse edema throughout the body wall. Previous hernia repair which has become posterior displaced from the abdominal wall anteriorly. Solid organs are unremarkable. No bowel wall thickening is identified. Keyshawn Holguin MD Lower Extremity Ultrasound 06/02/17 0000 Signed Impressions: Service Date/Time: Friday, June 02, 2017 18:37 - CONCLUSION: The study is negative for deep venous thrombosis bilateral lower extremity. Bruce Calix MD PE at Discharge GENERAL: Obese female, lying in bed in no acute distress. SKIN: Warm and dry. HEAD: Atraumatic. Normocephalic. EYES: Pupils equal and round. No scleral icterus. No injection or drainage. ENT: No nasal bleeding or discharge. Mucous membranes pink and moist. NECK: Trachea midline. No JVD. CARDIOVASCULAR: Normal rate, regular rhythm. RESPIRATORY: No accessory muscle use. Bilateral crackles appreciated. GASTROINTESTINAL: Abdomen soft, non-tender, protuberant nondistended. No guarding. Normoactive bowel sounds MUSCULOSKELETAL: TR bilateral lower extremity edema. NEUROLOGICAL: Awake and alert. No gross focal/sensory deficits. Follows commands in all 4 extremities. PSYCH: Mood and affect appropriate. Pt update on day of discharge The patient was feeling well and looking forward to going home. She said she talked with the lung doctor earlier this morning. She said she will follow up with her primary care doctor. She has been ambulatory. She had no acute complaints. Hospital Course Community-acquired pneumonia/ Acute respiratory failure Methemoglobinemia level was initially 3.6. Denied a past medical history genetic predisposition of G6PD, E5 reductase deficiency. Extrinsic use, patient reportedly used nitroglycerin 06/02 and takes glipizide ER ( Sulfonylurea). Methylene blue 100 mg IV, ascorbic acid 100 mg IV. 06/04 chest x-ray with persistent infiltrates and bilateral effusions. Legionella and pneumococcal urine antigen-negative. Pulmonology was consulted. She was continued on IV Rocephin and azithromycin. She received bronchodilators every 6 hours scheduled and as needed. She used incentive spirometry. She will complete a course of PO Levaquin. She will follow up with her PCP and pulmonology as an outpt. She will have an oxygen walk test prior to discharge. Acute congestive heart failure, likely diastolic Initial BMP of 949 downtrended to 343. Troponin 0.03->0.04->0.04. 06/04 echo with EF 50-55%. She was monitored on telemetry. Lasix was resumed. She will continue atenolol, lisinopril and amlodipine. BAN I the setting of chronic kidney disease. S/p IVFs. Creatinine: Protein Ratio elevated. 06/02 Renal ultrasound-no hydronephrosis. Nephrology was consulted. The pt has proteinuria in the nephrotic range. We monitored strict Is and Os. We held Lasix and lisinopril. As her creatinine remained stable Lasix and lisinopril were resumed. She will have a repeat BMP in 3-5 days and will follow up with nephrology. Anemia 06/03 peripheral smear- hypochromic anemia. B12 level was borderline low. S/p B12 IM x 1. She will follow up with her PCP. Diabetes mellitus Has been hypoglycemic at times. Levemir was held. She was placed on an inulin sliding scale. A1c was 7.8%. She will continue her home glipizide. Her home Levemir will be reduced to 10 units BID. She will follow up with her PCP. Pt Condition on Discharge: Stable Discharge Disposition: Discharge Home Discharge Time: > 30 minutes Discharge Instructions DIET: Follow Instructions for: Diabetic Diet Activities you can perform: Weight Bearing as Jarad Follow up Referrals: Appointment for Follow Up @ [facility] Nephrology - [address] Dalton PCP Follow-up - 3-5 Days Pulmonology - 1 Week with Rui Sweet MD Pulmonology @ [facility] New Orders: BASIC METABOLIC PROF - 3-5 Days New Medications: Albuterol 8.5 GM Inh (Proair Hfa 8.5 GM Inh) 90 Mcg/Act Aer 2 PUFF INH Q4-6H PRN for SHORTNESS OF BREATH, #1 INHALER 0 Refills 108 mcg/actuation Insulin Detemir Inj (Levemir Inj) 1,000 unit/ 10 ML Vial 10 UNITS SQ BID for Blood Sugar Management for 30 Days, VIAL 0 Refills Do not mix with any other Insulin. Lisinopril (Lisinopril) 10 Mg Tab 10 MG PO DAILY, #30 TAB 0 Refills Oxygen (O2) (Oxygen (O2)) Device LITER ISABELA.CANULA CONTINUOUS for Prevent Hypoxemia, #2 Oxygen Concentrator Portable Gaseous 2 L/min via Nasal Canula Continuous For 99 months Levofloxacin (Levaquin) 250 Mg Tablet 250 MG PO Q48H for Infection, #5 TAB Continued Medications: Amlodipine (Amlodipine) 10 Mg Tab 10 MG PO DAILY for Blood Pressure Management, #30 TAB 0 Refills Atenolol (Atenolol) 50 Mg Tab 50 MG PO DAILY for Blood Pressure Management, #30 TAB 0 Refills Furosemide (Furosemide) 20 Mg Tab 20 MG PO DAILY, #30 TAB 0 Refills Glipizide ER (Glipizide XL) 10 Mg Allan 10 MG PO DAILY for Blood Sugar Management, #30 TAB 0 Refills Take with breakfast or first main meal of the day Insulin Lispro (Human) Inj (Humalog Inj) 1,000 Unit/10 Ml Vial 2-12 UNITS SQ TIDAC for Blood Sugar Management, #1 VIAL 0 Refills Max dose at bedtime:( )units; sugars < 70,(0)units; sugars 150-199,(2)units; sugars 200-249,(4)units; sugars 250-299,(7)units; sugars 300-349,(10)units; sugars more than 349,(12)units. Discontinued Medications: Insulin Detemir Inj (Levemir Flextouch Pen Inj) 300 unit/3 ML Pen 30 UNITS SQ BIDAC for Blood Sugar Management, PEN 0 Refills Lisinopril (Lisinopril) 30 Mg Tab 30 MG PO DAILY for Blood Pressure Management, #30 TAB 0 Refills Romain Washington DO Jun 08, 2017 09:38
[2017-06-08] MEDS ORDERED: OXYGENDME NAS.CANULA (11:02)
--- NOTE | 2017-06-08 11:03 | HHI.FF ---
Face to Face Verification Diagnosis: (1) Pneumonia (2) Hypoxia (3) Type 2 diabetes mellitus with diabetic chronic kidney disease (4) BAN (acute kidney injury) (5) Proteinuria (6) UTI (urinary tract infection) (7) Sepsis (8) Renal failure Home Health Nursing Order: Medical education Signs/symptoms of disease process Diabetic education Oxygen administration education Medication education-adverse effect Nursing assessment with vital signs I have seen patient Haley Lara on 06/08/17. My clinical findings support the need for the requested home health care services because: Patient has SOB I certify that my clinical findings support that this patient is homebound because: Unsteady gait/balance Romain Washington DO Jun 08, 2017 11:03
--- NOTE | 2017-06-08 11:35 | HHI.NPPN ---
Subjective Renal Failure: Chronic, Acute Interval History She is to be discharged today. Will return to [place] this week. She is non oliguric. (Jenn Hernandez) Review of Systems General Constitutional: Fatigue (Jenn Hernandez) Respiratory Lungs: Cough (Jenn Hernandez) Objective Data Data Vital Signs Date Time Temp Pulse Resp B/P (MAP) Pulse Ox O2 Delivery O2 Flow Rate FiO2 06/08/17 10:42 2.00 06/08/17 08:00 98.5 83 16 154/73 (100) 97 06/08/17 04:00 Nasal Cannula 2.00 06/08/17 04:00 98.3 81 20 156/86 (109) 100 06/08/17 01:00 156/88 (110) 06/08/17 00:00 Nasal Cannula 2.00 06/08/17 00:00 98.1 85 20 168/79 (108) 97 06/07/17 20:21 98 Nasal Cannula 2.00 06/07/17 20:15 79 06/07/17 20:00 Nasal Cannula 2.00 06/07/17 20:00 97.4 80 21 142/88 (106) 99 06/07/17 16:01 97.5 80 20 157/77 (103) 93 06/07/17 12:37 100 Nasal Cannula 2.00 06/07/17 12:01 97.8 78 20 156/75 (102) 98 (Jenn Hernandez) -: 06/08/17 0605 06/08/17 0605 Imaging Last 72 hours Impressions Chest X-Ray 06/07/17 0000 Signed Impressions: Service Date/Time: Wednesday, June 07, 2017 14:56 - CONCLUSION: 1. Mild basilar airspace disease with small effusions. Bilateral airspace disease has improved since June 04. Differential diagnosis includes bronchopneumonia and edema. Jonathan Oliveros MD (Jenn Hernandez) Physical Exam General Appearance: Well Developed, Well Nourished, Comfortable, Obese (Jenn Hernandez) Eyes Eye Exam: Pupils Equal (Jenn Hernandez) Neck Neck Exam: Neck Supple (Jenn Hernandez) Pulmonary Resp Exam: Clear Bilaterally, Breath Sounds Equal (Jenn Hernandez) Cardiology CV Exam: Regular, Normal Sinus Rhythm (Jenn Hernandez) Gastrointestinal/Abdomen GI Exam: Soft, Non-Tender, Bowel Sounds Present (Jenn Hernandez) Musculoskeletal MS Exam: Joints Intact, Normal Tone, Good Strength (Jenn Hernandez) Integumentary Skin Exam: Warm, Dry, Intact (Jenn Hernandez) Extremeties Extremities Exam: No Edema, Pedal Pulses Palpable (Jenn Hernandez) Neurologic Neuro Exam: Alert, Awake, Oriented, Speech Clear, Moving All Extremities (Jenn Hernandez) Assessment/Plan Discussed Condition With: Patient Assessment Summary: CKD Stage IV Problem List: (1) BAN (acute kidney injury) ICD Codes: N17.9 - Acute kidney failure, unspecified Plan: She has underlying CKD, with heavy proteinuria, most likely diabetic nephropathy. She is non oliguric. To be discharged today, we discussed her finding a riprap man in [place] to follow after discharge. It is possible she may need dialysis in the future. Stable for discharge. (2) Pneumonia ICD Codes: J18.9 - Pneumonia, unspecified organism Status: Acute Plan: To be discharged on Levaquin PO. (3) Type 2 diabetes mellitus with diabetic chronic kidney disease ICD Codes: E11.22 - Type 2 diabetes mellitus with diabetic chronic kidney disease Plan: Continue insulin coverage. Avoid metformin. She has heavy proteinuria. (4) Proteinuria ICD Codes: R80.9 - Proteinuria, unspecified Plan: See above. Likely has diabetic nephropathy associated with heavy proteinuria. Serologies are negative. On JASMIN inhibitor. (Jenn Hernandez) Plan patient was seen and examined. She likely has CKD due to diabetic nephropathy. Patient was advised to followup with a riprap man in [place]. No immediate need for dialysis, but it may become necessary in the near future. Risk factor modifications advised. She verbalized her understanding. (Jean Carlos Dalton MD) Problem Qualifiers (1) Pneumonia: Qualified Codes: J18.9 - Pneumonia, unspecified organism Jenn Hernandez Jun 08, 2017 11:35 Jean Carlos Dalton MD Jun 09, 2017 10:45
[2017-06-08 11:44] LABS: ANA SCREEN NEG (NEG)
[2017-06-08 12:00] VITALS: BP 147/70; PULSE 76; RESP 20; TEMP 97.5; O2SAT 100
--- NOTE | 2017-06-08 12:22 | HHI.FF ---
Face to Face Verification Diagnosis: (1) Renal failure (2) Sepsis (3) UTI (urinary tract infection) (4) Proteinuria (5) BAN (acute kidney injury) (6) Type 2 diabetes mellitus with diabetic chronic kidney disease (7) Hypoxia (8) Pneumonia Physical Therapy Order: Evaluate and Treat, Improve ambulation, Strength and gait training Home Health Nursing Order: Medical education Signs/symptoms of disease process Diabetic education Oxygen administration education Medication education-adverse effect Nursing assessment with vital signs I have seen patient Haley Lara on 06/08/17. My clinical findings support the need for the requested home health care services because: Ltd mobility - disease progression Patient has SOB Deconditioned w/ increased weakness I certify that my clinical findings support that this patient is homebound because: Unsteady gait/balance Romain Washington DO Jun 08, 2017 12:22
[2017-06-08 12:58] VITALS: O2SAT 95
--- NOTE | 2017-06-08 16:29 | HHI.PR ---
Subjective Remarks The pt was anxious to go home. Awaiting home oxygen. Discussed with nursing. Objective Vitals Vital Signs Date Time Temp Pulse Resp B/P (MAP) Pulse Ox O2 Delivery O2 Flow Rate FiO2 06/08/17 14:02 Nasal Cannula 2.00 30 06/08/17 12:58 95 Nasal Cannula 2.00 06/08/17 12:00 97.5 76 20 147/70 (95) 100 06/08/17 10:42 2.00 06/08/17 08:00 98.5 83 16 154/73 (100) 97 06/08/17 04:00 Nasal Cannula 2.00 06/08/17 04:00 98.3 81 20 156/86 (109) 100 06/08/17 01:00 156/88 (110) 06/08/17 00:00 Nasal Cannula 2.00 06/08/17 00:00 98.1 85 20 168/79 (108) 97 06/07/17 20:21 98 Nasal Cannula 2.00 06/07/17 20:15 79 06/07/17 20:00 Nasal Cannula 2.00 06/07/17 20:00 97.4 80 21 142/88 (106) 99 I/O 06/07/17 06/07/17 06/07/17 06/08/17 06/08/17 06/08/17 07:00 15:00 23:00 07:00 15:00 23:00 Intake Total 550 ml 420 ml 642 ml Balance 550 ml 420 ml 642 ml Intake Oral 550 ml 420 ml 642 ml # Voids 4 5 2 # Bowel Movements 1 1 Result Diagram: 06/08/1760406/08/17604 Imaging Last Impressions Chest X-Ray 06/07/17 0000 Signed Impressions: Service Date/Time: Wednesday, June 07, 2017 14:56 - CONCLUSION: 1. Mild basilar airspace disease with small effusions. Bilateral airspace disease has improved since June 04. Differential diagnosis includes bronchopneumonia and edema. Jonathan Oliveors MD Renal Ultrasound 06/03/17 0000 Signed Impressions: Service Date/Time: Saturday, June 03, 2017 08:13 - CONCLUSION: Normal examination. Keyshawn Holguin MD Chest CT 06/03/17 0000 Signed Impressions: Service Date/Time: Saturday, June 03, 2017 09:25 - CONCLUSION: Bilateral areas of consolidation and pleural effusions. Fullness of the anterior- superior mediastinal adenopathy versus fluid. Keyshawn Holguin MD Abdomen/Pelvis CT 06/03/17 0000 Signed Impressions: Service Date/Time: Saturday, June 03, 2017 09:22 - CONCLUSION: Diffuse edema throughout the body wall. Previous hernia repair which has become posterior displaced from the abdominal wall anteriorly. Solid organs are unremarkable. No bowel wall thickening is identified. Keyshawn Holguin MD Lower Extremity Ultrasound 06/02/17 0000 Signed Impressions: Service Date/Time: Friday, June 02, 2017 18:37 - CONCLUSION: The study is negative for deep venous thrombosis bilateral lower extremity. Bruce Calix MD Objective Remarks GENERAL: Obese female, lying in bed in no acute distress. SKIN: Warm and dry. HEAD: Atraumatic. Normocephalic. EYES: Pupils equal and round. No scleral icterus. No injection or drainage. ENT: No nasal bleeding or discharge. Mucous membranes pink and moist. NECK: Trachea midline. No JVD. CARDIOVASCULAR: Normal rate, regular rhythm. RESPIRATORY: No accessory muscle use. Bilateral crackles appreciated. GASTROINTESTINAL: Abdomen soft, non-tender, protuberant nondistended. No guarding. Normoactive bowel sounds MUSCULOSKELETAL: TR bilateral lower extremity edema. NEUROLOGICAL: Awake and alert. No gross focal/sensory deficits. Follows commands in all 4 extremities. PSYCH: Mood and affect appropriate. Procedures None Medications and IVs Current Medications Medications (Trade) Dose Ordered Sig/Maty Route Start Time Stop Time Status Last Admin (NS Flush) 2 ml UNSCH PRN IV FLUSH 06/02/17 15:15 (NS Flush) 2 ml BID IV FLUSH 06/02/17 21:00 06/08/17 08:55 (Tylenol) 650 mg Q6H PRN PO 06/02/17 15:15 06/05/17 23:14 (Zofran Inj) 4 mg Q6H PRN IV PUSH 06/02/17 15:15 (Duoneb Neb) 1 ampule Q2HR NEB PRN INH 06/02/17 15:15 (Heparin Inj) 5,000 units Q12H SQ 06/02/17 16:00 06/08/17 03:14 Miscellaneous Information 1 Q361D XX 06/02/17 15:15 (Chlorhexidine 2% Cloth) Taper DAILY@04 TOP 06/03/17 04:00 05/30/18 03:59 06/08/17 03:14 (Chlorhexidine 2% Cloth) 3 pack UNSCH PRN TOP 06/02/17 15:15 (Milk Of Magnesia Liq) 30 ml Q12H PRN PO 06/02/17 15:15 (Senokot) 17.2 mg Q12H PRN PO 06/02/17 15:15 (Dulcolax Supp) 10 mg DAILY PRN RECTAL 06/02/17 15:15 (Lactulose Liq) 30 ml DAILY PRN PO 06/02/17 15:15 (D50w (Vial) Inj) 50 ml UNSCH PRN IV PUSH 06/02/17 15:30 (Glucagon Inj) 1 mg UNSCH PRN OTHER 06/02/17 15:30 (NovoLOG SUPPLEMENTAL SCALE) 1 ACHS SLIDING SCALE SQ 06/02/17 17:00 06/08/17 12:23 Acetaminophen 100 ml @ 400 mls/hr Q8H PRN IV 06/02/17 20:15 (Tenormin) 50 mg DAILY PO 06/05/17 09:00 06/08/17 08:56 (Apresoline Inj) 20 mg Q4H PRN IV PUSH 06/04/17 12:15 06/05/17 08:49 (Norvasc) 10 mg DAILY PO 06/06/17 10:30 06/08/17 08:55 (Robitussin Ac 200-20 Mg/10 ml Liq) 10 ml Q6H PRN PO 06/06/17 10:15 06/07/17 10:46 (Duoneb Neb) 1 ampule TID NEB INH 06/06/17 20:00 06/08/17 12:57 (Lasix) 20 mg BID@,18 PO 06/07/17 10:15 06/08/17 08:56 (Levaquin) 250 mg Q48H PO 06/08/17 09:00 06/08/17 11:33 A/P Problem List: (1) UTI (urinary tract infection) ICD Code: N39.0 - Urinary tract infection, site not specified (2) Renal failure ICD Code: N19 - Unspecified kidney failure Status: Acute (3) Hypoxia ICD Code: R09.02 - Hypoxemia Status: Acute (4) Sepsis ICD Code: A41.9 - Sepsis, unspecified organism Status: Acute (5) Pneumonia ICD Code: J18.9 - Pneumonia, unspecified organism Status: Acute (6) Type 2 diabetes mellitus with diabetic chronic kidney disease ICD Code: E11.22 - Type 2 diabetes mellitus with diabetic chronic kidney disease (7) BAN (acute kidney injury) ICD Code: N17.9 - Acute kidney failure, unspecified (8) Proteinuria ICD Code: R80.9 - Proteinuria, unspecified Assessment and Plan Community-acquired pneumonia Methemoglobinemia level 3.6. Denial past medical history genetic predisposition of G6PD, E5 reductase deficiency . 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 Methylene blue 100 mg IV, ascorbic acid 100 mg IV. 06/04 chest x-ray with persistent infiltrates and bilateral effusions. Legionella and pneumococcal urine antigen-negative. Appreciate pulmonology consult. - IV Rocephin and azithromycin changed to PO Levaquin. - Maintain O2 sat greater than 92% FiO2 as tolerated. - Bronchodilators every 6 hours scheduled. - Pulmonology following. - sputum and blood cultures pending. - Incentive spirometry. Acute congestive heart failure, likely diastolic Initial BMP 949 now downtrended 343. Troponin 0.03->0.04->0.04. 06/04 echo with EF 50-55%. - Telemetry. - Patient home meds include Lasix 20 mg/day and lisinopril 30 mg/day on hold secondary to renal insufficiency. Will resume Lasix and lisinopril at this time. - Continue atenolol and amlodipine. BAN I the setting of chronic kidney disease. S/p IVFs. Creatinine: Protein Ratio elevated. 06/02 Renal ultrasound-no hydronephrosis. - Nephrology following. - strict Is and Os. - resume lisinopril. - monitor BMP in 3-5 days. Anemia 06/03 peripheral smear- hypochromic anemia. Likely anemia of chronic disease. B12 level was borderline low. - follow CBC. - B12 IM x 1. Diabetes mellitus Has been hypoglycemic. Improved 06/08. - inulin sliding scale. - d/c Levemir. PPx: Heparin Discharge Planning D/c when home oxygen is set-up. Problem Qualifiers (1) Renal failure: Qualified Codes: N19 - Unspecified kidney failure (2) Sepsis: Qualified Codes: A41.9 - Sepsis, unspecified organism (3) Pneumonia: Qualified Codes: J18.9 - Pneumonia, unspecified organism Romain Washington DO Jun 08, 2017 16:29
[2017-06-09 13:54] LABS: MYELOPEROXIDASE LESS THAN 1.0 AI (<1.0); PROTEINASE-3 LESS THAN 1.0 AI (<1.0)
== END 2017-06-08 18:40 | disposition home or self-care (01) | DRG 871 ==
LOC: NEPE 12:20 → NEDA 14:42 → HIMN 17:40 → N04A 06-05 10:05
PROVIDERS: ADMIT Hospitalist; ATTEND Hospitalist
PROC: 5A09357 Assistance with Respiratory Ventilation, Less than 24 Consecutive Hours, Continuous Positive Airway Pressure (ICD-10-PCS; 2017-06-02)
PROC: 0T9B70Z Drainage of Bladder with Drainage Device, Via Natural or Artificial Opening (ICD-10-PCS; 2017-06-02)
PROC: 30233N1 Transfusion of Nonautologous Red Blood Cells into Peripheral Vein, Percutaneous Approach (ICD-10-PCS; principal; 2017-06-03)
DX: A41.9 Sepsis, unspecified organism (principal); J18.9 Pneumonia, unspecified organism; J96.01 Acute respiratory failure with hypoxia; I50.31 Acute diastolic (congestive) heart failure; E11.21 Type 2 diabetes mellitus with diabetic nephropathy; N18.4 Chronic kidney disease, stage 4 (severe); N17.9 Acute kidney failure, unspecified; I13.0 Hypertensive heart and chronic kidney disease with heart failure and stage 1 through stage 4 chronic kidney disease, or unspecified chronic kidney disease; D74.9 Methemoglobinemia, unspecified; E44.1 Mild protein-calorie malnutrition; N39.0 Urinary tract infection, site not specified; Z68.41 Body mass index [BMI] 40.0-44.9, adult; E11.22 Type 2 diabetes mellitus with diabetic chronic kidney disease; E66.01 Morbid (severe) obesity due to excess calories; R65.20 Severe sepsis without septic shock; E78.5 Hyperlipidemia, unspecified; D50.9 Iron deficiency anemia, unspecified; D63.8 Anemia in other chronic diseases classified elsewhere; E11.649 Type 2 diabetes mellitus with hypoglycemia without coma; Z79.4 Long term (current) use of insulin
CPT/HCPCS: 36430; 36600; 71010; 71020; 71250; 74176; 76775; 76937; 80048; 80053; 80061; 80069; 81001; 81003; 82550; 82570; 82607; 82668; 82728; 82746; 82805; 82948; 83036; 83540; 83550; 83605; 83690; 83735; 83880; 84100; 84156; 84300; 84484; 85014; 85018; 85025; 85027; 85060; 85610; 85730; 86021; 86038; 86160; 86317; 86703; 86803; 86850; 86900; 86901; 86920; 87040; 87086; 87205; 87340; 87449; 87641; 87804; 93005; 93306; 93970; 94002; 94003; 94150; 94620; 94640; 94664; 94667; 94668; 96365; J0131; J0360; J0456; J0692; J0696; J1644; J1815; J3010; J3420; J7030; J7040; J7050; P9016